=== PATIENT | female | born 1955 | race Caucasian/White ===

== ENCOUNTER 2018-11-18 19:30 | Inpatient (IN) | payer MEDICARE, MEDICAID ==
[2018-11-18 22:05] VITALS: BP 122/51
[2018-11-18] MEDS ORDERED: Magnesium Hydroxide (MOM) 30 mL UDC PO PRN (22:17)
[2018-11-18] MEDS ORDERED: Maalox 30 mL Cup PO PRN (22:17)
[2018-11-19 03:31] LABS: URINE SOURCE MIDSTREAM
[2018-11-19 03:35] LABS: URINE BILIRUBIN NEGATIVE (NEGATIVE); URINE BLOOD NEGATIVE (NEGATIVE); URINE GLUCOSE (UA) NEGATIVE (NEGATIVE); URINE KETONE NEGATIVE (NEGATIVE); URINE LEUKOCYTE ESTERASE NEGATIVE (NEGATIVE); URINE NITRATE NEGATIVE (NEGATIVE); URINE PH 5.5 (4.6 - 8.0); URINE PROTEIN NEGATIVE (NEGATIVE); URINE UROBILINOGEN 0.2 E.U./dL (0.2 - 1.0)
[2018-11-19 03:41] LABS: URINE CLARITY CLEAR (CLEAR); URINE COLOR YELLOW; URINE MICROSCOPIC INDICATED? NO
[2018-11-19] MEDS: Albuterol Nebulizer 2.5mg/3mL HHN PRN (07:07)
[2018-11-19 07:45] LABS: CHOLESTEROL 206 mg/dL (<200); HDL -HIGH DENSITY LIPOPROTEIN 62 mg/dL (23-92); TRIGLYCERIDES 163 mg/dL (<150)
--- NOTE | 2018-11-19 09:22 | History and Physical ---
History of Present Illness - HPI Chief Complaint: Agitation HPI: Per record, patient went to [facility] due to SOB, during examination patient became agitated reason why she was transferred to this hospital Vital Signs: Last Vital Signs Temp 97.2 F 11/19/18 06:47 Pulse 89 11/19/18 07:04 Resp 18 11/19/18 07:04 BP 100/62 11/19/18 06:47 Pulse Ox 95 11/19/18 07:04 Past Medical History Cardiovascular: Report: No Pertinent Hx Pulmonary: Report: COPD RETAIL REPRESENTATIVE: Report: No Pertinent Hx GI: Report: No Pertinent Hx Psych: Report: Psychosis, Schizophrenia Musculoskeletal: Report: No Pertinent Hx Rheumatologic: Report: No pertinent Hx Infectious Disease: Report: No Pertinent Hx Renal/: Report: No Pertinent Hx Endocrine: Report: No Pertinent Hx Dermatology: Report: No Pertinent Hx - Past Surgical History Past Surgical History: No pertinent Hx Social History Smoke: No Alcohol: Occassional Drugs: Marijuana Lives: Homeless Domestic Violence: Negative - Allergies Allergies/Adverse Reactions: Allergies Allergy/AdvReac Type Severity Reaction Status Date / Time No Known Allergies Allergy Verified 11/18/18 22:12 Review of Systems - Review of Systems Constitutional: Report: Weakness Eyes: Report: No Significant ENT: Report: No Significant Respiratory: Report: Cough, SOB with Excertion, Wheezing Cardiovascular: Report: No Significant Gastrointestinal: Report: No Significant Genitourinary: Report: No Significant Musculoskeletal: Report: No Significant Skin: Report: No Significant Neurological: Report: Weakness Physical Exam - Physical Exam HEENT: Report: Ears Nose Throat within normal limits Neck: Report: Within normal limits Cardiovascular Systems: Report: Regular, Rate and Rhythm Respiratory: Report: Wheezing, Rhonchi Abdomen: Report: Non-tender to palpation Back: Report: Inspection of back is within normal limits. Extremities: Report: Non-tender to palpation. Skin: Report: Color of skin is within normal limits, Warm, Dry Neuro/Psych: Report: Disoriented to name time or place, Depressed affect - Lab Results All Lab Results last 24 hours: Laboratory Results - last 24 hr 11/18/18 11/19/18 00:00 07:00 Triglycerides 163 H Cholesterol 206 H LDL Cholesterol Direct 112 HDL Cholesterol 62 Urine Source MIDSTREAM Urine Color YELLOW Urine Clarity CLEAR Urine pH 5.5 Ur Specific [place] 1.020 Urine Protein NEGATIVE Urine Glucose (UA) NEGATIVE Urine Ketones NEGATIVE Urine Blood NEGATIVE Urine Nitrate NEGATIVE Urine Bilirubin NEGATIVE Urine Urobilinogen 0.2 Ur Leukocyte Esterase NEGATIVE - Assessment Assessment: Patient was not able to provided a good medical history, information was gather from chart. She is awake, alert, confused, not oriented, in no acute distress. There is bilateral whezzing. Dx: Psychosis, COPD exacerbation, Schizophrenia. - Plan Plan: patient is follow by Psychiatry, she is on albuterol/ipratropium breathing treatment, Labs and CXR were requested. Will continue to monitor.
[2018-11-19 10:19] LABS: % BASOPHILS 0.7 % (0.0-2.0); % EOSINOPHILS 0.7 % (0.0-5.0); % LYMPHOCYTES 42.4 % (20.0-50.0); % MONOCYTES 6.5 % (2.0-10.0); % NEUTROPHILS 49.7 % (40.0-80.0); BASOPHILE ABSOLUTE 0.1 Th/cumm (0-0.2); EOSINOPHILE ABSOLUTE 0.1 Th/cmm (0.1-0.4); HEMATOCRIT 43.2 % (41.0-60); HEMOGLOBIN 14.1 gm/dL (12-16); LYMPHOCYTE ABSOLUTE 4.1 Th/cmm (1.5-3.0); MEAN CELL VOLUME 96.7 fl (81-100); MEAN CORPUSCULAR HEMOGLOBIN 31.7 pg (27.0-31.0); MEAN CORPUSCULAR HGB CONC 32.8 pg (28.0-36.0); MEAN PLATELET VOLUME 8.4 fl; MONOCYTE ABSOLUTE 0.6 Th/cmm (0.3-1.0); NEUTROPHILE ABSOLUTE 4.7 Th/cmm (1.8-8.0); PLATELET COUNT 230 Th/cmm (150-400); RED BLOOD COUNT 4.46 Mil/cmm (3.80-5.20); RED CELL DISTRIBUTION WIDTH 13.5 % (11.5-20.0); WHITE BLOOD COUNT 9.6 Th/cmm (4.8-10.8)
[2018-11-19] MEDS: Albuterol/Ipratropium Neb 3 ML AERS HHN SCH ×2 (10:27→14:38)
[2018-11-19 10:33] LABS: ALB/GLOB RATIO 1.4 (1.0-1.8); ALBUMIN 3.8 gm/dL (3.7-5.3); ALKALINE PHOSPHATASE 78 U/L (34-104); ANION GAP 13.6 (7.0-16.0); BILIRUBIN,TOTAL 0.3 mg/dL (0.3-1.0); BUN - UREA NITROGEN 15 mg/dL (7-25); CALCIUM SERUM 9.4 mg/dL (8.6-10.3); CARBON DIOXIDE 28.3 mEq/L (21.0-31.0); CHLORIDE 101 mEq/L (98-107); CREATININE - SERUM 0.5 mg/dL (0.6-1.2); GFR AFRICAN-AMERICAN > 60.0 ml/min (>90); GFR NON AFRICAN-AMERICAN > 60.0 ml/min; GLUCOSE 101 mg/dL (70-105); POTASSIUM SERUM 3.9 mEq/L (3.5-5.1); SGOT 36 U/L (13-39); SGPT/ALT 43 U/L (7-52); SODIUM SERUM 139 mEq/L (136-145); TOTAL PROTEIN,SERUM 6.5 gm/dL (6.0-8.3)
--- NOTE | 2018-11-19 10:57 | Diagnostic Imaging Report ---
Portable chest x-ray History: Shortness of breath, COPD Allowing for portable technique the heart size is normal. No focal pulmonary parenchymal processes. No hilar or mediastinal abnormalities. Impression: No acute abnormalities.
[2018-11-19] MEDS ORDERED: Probiotic Screen MC PRN (15:33)
[2018-11-20] MEDS: Albuterol/Ipratropium Neb 3 ML AERS HHN SCH ×4 (06:44→19:11)
--- NOTE | 2018-11-20 10:04 | General Progress Note ---
Subjective - Review of Systems Service Date: 11/20/18 Subjective: I am fine Objective - Results Result Diagrams: 11/19/18 07:00 11/19/18 07:00 Recent Labs: Laboratory Last Values WBC 9.6 Th/cmm (4.8-10.8) 11/19/18 07:00 RBC 4.46 Mil/cmm (3.80-5.20) 11/19/18 07:00 Hgb 14.1 gm/dL (12-16) 11/19/18 07:00 Hct 43.2 % (41.0-60) 11/19/18 07:00 MCV 96.7 fl (81-100) 11/19/18 07:00 MCH 31.7 pg (27.0-31.0) H 11/19/18 07:00 MCHC Differential 32.8 pg (28.0-36.0) 11/19/18 07:00 RDW 13.5 % (11.5-20.0) 11/19/18 07:00 Plt Count 230 Th/cmm (150-400) 11/19/18 07:00 MPV 8.4 fl 11/19/18 07:00 Neutrophils % 49.7 % (40.0-80.0) 11/19/18 07:00 Lymphocytes % 42.4 % (20.0-50.0) 11/19/18 07:00 Monocytes % 6.5 % (2.0-10.0) 11/19/18 07:00 Eosinophils % 0.7 % (0.0-5.0) 11/19/18 07:00 Basophils % 0.7 % (0.0-2.0) 11/19/18 07:00 Sodium 139 mEq/L (136-145) 11/19/18 07:00 Potassium 3.9 mEq/L (3.5-5.1) 11/19/18 07:00 Chloride 101 mEq/L (98-107) 11/19/18 07:00 Carbon Dioxide 28.3 mEq/L (21.0-31.0) 11/19/18 07:00 Anion Gap 13.6 (7.0-16.0) 11/19/18 07:00 BUN 15 mg/dL (7-25) 11/19/18 07:00 Creatinine 0.5 mg/dL (0.6-1.2) L 11/19/18 07:00 Est GFR ( Amer) > 60.0 ml/min (>90) 11/19/18 07:00 Est GFR (Non-Af Amer) > 60.0 ml/min 11/19/18 07:00 BUN/Creatinine Ratio 30.0 11/19/18 07:00 Glucose 101 mg/dL (70-105) 11/19/18 07:00 Calcium 9.4 mg/dL (8.6-10.3) 11/19/18 07:00 Total Bilirubin 0.3 mg/dL (0.3-1.0) 11/19/18 07:00 AST 36 U/L (13-39) 11/19/18 07:00 ALT 43 U/L (7-52) 11/19/18 07:00 Alkaline Phosphatase 78 U/L (34-104) 11/19/18 07:00 Total Protein 6.5 gm/dL (6.0-8.3) 11/19/18 07:00 Albumin 3.8 gm/dL (3.7-5.3) 11/19/18 07:00 Globulin 2.7 gm/dL 11/19/18 07:00 Albumin/Globulin Ratio 1.4 (1.0-1.8) 11/19/18 07:00 Triglycerides 163 mg/dL (<150) H 11/19/18 07:00 Cholesterol 206 mg/dL (<200) H 11/19/18 07:00 LDL Cholesterol Direct 112 mg/dL (75-193) 11/19/18 07:00 HDL Cholesterol 62 mg/dL (23-92) 11/19/18 07:00 TSH 2.58 uIU/ml (0.34-5.60) 11/19/18 07:00 Urine Source MIDSTREAM 11/18/18 00:00 Urine Color YELLOW 11/18/18 00:00 Urine Clarity CLEAR (CLEAR) 11/18/18 00:00 Urine pH 5.5 (4.6 - 8.0) 11/18/18 00:00 Ur Specific [place] 1.020 (1.005-1.030) 11/18/18 00:00 Urine Protein NEGATIVE mg/dL (NEGATIVE) 11/18/18 00:00 Urine Glucose (UA) NEGATIVE mg/dL (NEGATIVE) 11/18/18 00:00 Urine Ketones NEGATIVE mg/dL (NEGATIVE) 11/18/18 00:00 Urine Blood NEGATIVE (NEGATIVE) 11/18/18 00:00 Urine Nitrate NEGATIVE (NEGATIVE) 11/18/18 00:00 Urine Bilirubin NEGATIVE (NEGATIVE) 11/18/18 00:00 Urine Urobilinogen 0.2 E.U./dL (0.2 - 1.0) 11/18/18 00:00 Ur Leukocyte Esterase NEGATIVE (NEGATIVE) 11/18/18 00:00 - Physical Exam Vitals and I&O: Vital Signs Temp 98.4 F 11/20/18 06:12 Pulse 80 11/20/18 06:45 Resp 18 11/20/18 06:45 BP 121/73 11/20/18 06:12 Pulse Ox 95 11/20/18 06:45 Intake & Output 11/19/18 11/20/18 11/20/18 18:59 06:59 18:59 Intake Total 950 360 Balance 950 360 Intake: Oral 950 360 Other: # Voids 4 1 # Bowel Movements 1 1 Active Medications: Current Medications Acetaminophen (Tylenol) 650 mg PO Q4HR PRN PRN Reason: Mild Pain / Temp above 100 Stop: 01/17/19 22:16 Al Hydrox/Mg Hydrox/Simethicone (Maalox) 30 ml PO Q4HR PRN PRN Reason: GI DISTRESS Stop: 01/17/19 22:16 Albuterol Sulfate (Albuterol 2.5mg/3ml Neb Ud) 2.5 mg HHN Q4H PRN PRN Reason: wheezing Stop: 01/17/19 22:49 Last Admin: 11/19/18 07:07 Dose: 2.5 mg Albuterol/Ipratropium (Duoneb Neb) 3 ml HHN [id number] [facility] Stop: 01/18/19 10:59 Last Admin: 11/20/18 06:44 Dose: 3 ml Benztropine Mesylate (Cogentin) 0.5 mg PO BID [facility] Stop: 01/19/19 08:59 Last Admin: 11/20/18 09:03 Dose: 0.5 mg Lorazepam (Ativan) 0.5 mg PO Q4HR PRN; Protocol PRN Reason: Agitation Stop: 12/18/18 22:16 Last Admin: 11/20/18 09:46 Dose: 0.5 mg Magnesium Hydroxide (Milk Of Magnesia) 30 ml PO HS PRN PRN Reason: Constipation Miscellaneous (Probiotic Screen) 1 ea [facility] PRN PRN PRN Reason: PROTOCOL Stop: 01/18/19 15:32 Prednisone (Deltasone) 40 mg PO DAILY [facility]UKUND Stop: 01/18/19 08:59 Last Admin: 11/20/18 09:04 Dose: 40 mg Risperidone (Risperdal) 1 mg PO BID [facility]UND; Protocol Stop: 01/18/19 08:59 Last Admin: 11/20/18 09:03 Dose: 1 mg Zolpidem Tartrate (Ambien) 5 mg PO HS PRN PRN Reason: Insomnia Stop: 01/17/19 22:16 General: Alert, Other (confused, not oriented) HEENT: Atraumatic Neck: Supple Cardiovascular: Regular rate Lungs: Other (Bilateral whezzing) Abdomen: Bowel sounds, Soft Extremities: Other (No edema) Neurological: Other (unestable gait) Skin: Other (warm and dry) Psych/Mental Status: Other (confused, not oriented) Assessment/Plan - Assessment Assessment: She is awake, alert, confused, not oriented, in no acute distress. There is bilateral whezzing. CXR shows no acute illness, labs are wnl. Dx: Psychosis, COPD exacerbation, Schizophrenia. - Plan Plan: patient is follow by Psychiatry, she is on albuterol/ipratropium breathing treatment, Labs and CXR were requested. Will continue to monitor.
--- NOTE | 2018-11-20 13:32 | Psychiatric Evaluation ---
DATE OF SERVICE: I am covering for Dr. Harrell. HISTORY OF PRESENT ILLNESS: The patient is a 63-year-old female who was transferred from [facility]. The patient was taken there on 5150 hold for agitation. Since they did not have any available psych bed, therefore the patient was transferred here on 11/18/2018. Primary care physician is Dr. Rashard Cannon. Upon interview, the patient appeared to be somewhat poor a historian. When asked why she is here, the patient reported that she is here because of shortness of breath. The patient also reported that she has been rocking back and forth for about 2 years. The patient was not able to say why she has this problem. When asked if she has been on antipsychotic medications, the patient denied. The patient admitted that she had been to psychiatric unit at [facility] twice, but not able to give the date when she was there. The patient reported that she was there for shortness of breath as well. The patient was able to give her name, she stated that she is 62 years old and date of of 04/11/1956, but according to her record the date of is 1955 and she is 63 years old. The patient reported that she has 4 children. She was twice and . The patient reported that she has been staying at a board and care in [place] by the name of [facility]. The patient reported that she was told by the staff at the facility to lose weight. The patient stated that she lost about 50 pounds in about a year. The patient reported that sometimes she has problems sleeping because of noises. When asked if she has any episodes of hearing voices or seeing things, the patient denied. When asked if she is happy or sad, the patient stated that she is neither happy nor sad, but then stated that she is more sad than happy. When asked to rate her mood on the 0-10 scale with 0 being normal happy and 10 being very depressed and suicidal, the patient stated 5-6. However, the patient was not able to say why she is depressed. PAST PSYCHIATRIC HISTORY: As above. The patient reported that she had been in psychiatric hospital before, but not able to give much information. The patient stated that she believes that her father has a history of mental illness, bipolar, but not able to give much information. PAST MEDICAL HISTORY: The patient has COPD. PAST SURGICAL HISTORY: The patient reported that she had appendectomy, left knee surgery, tubal ligation and umbilical hernia repair. ALLERGIES: No known allergy. MEDICATIONS: Currently, the patient is on Tylenol, Maalox, albuterol, DuoNeb, azithromycin, Ativan 0.5 mg q.4 hours p.r.n., milk of magnesia, probiotic, prednisone, Risperdal 1 mg p.o. b.i.d., Ambien 5 mg p.o. at bedtime p.r.n. FAMILY HISTORY: The patient reported that she is the oldest of 2 children. She has 1 younger brother. SUBSTANCE ABUSE HISTORY: The patient reported that she used to drink. The patient reported that she smoked about half a pack a day. The patient reported that she tried marijuana, heroin, methamphetamine and cocaine. PATIENT'S EDUCATION: The patient reported that she finished 10th grade. PERSONAL HISTORY: The patient reported that she was , twice. She has four children. 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 The patient has not worked in 15 years. The patient reported that she was not able to work after she was diagnosed with schizophrenia around the year 1999. MENTAL STATUS EXAMINATION: The patient appeared older than stated age. The patient was cooperative, maintained good eye contact. Speech appeared to be normal. Mood appeared to be somewhat depressed with constricted affect. The patient rated her mood as 5-6 on a 0-10 scale with 0 being normal happy and 10 being very depressed and suicidal. Orientation: The patient was oriented to time, place and person. Short term memory, the patient was able to repeat the 4 items that they were given to her the first time. The patient was able to recall all 4 items after a few minutes. Concentration: The patient was able to perform serial 3 subtraction give an answer of 17, 14, 11 and 8. The patient was able to give logical interpretation to 1/3 proverbs. Insight fair to poor. Judgment fair to impaired. DIAGNOSTIC IMPRESSION: AXIS I: Schizophrenia, chronic paranoid type. AXIS II: Deferred. AXIS III: Chronic obstructive pulmonary disease. AXIS IV: Medical and mental illnesses. AXIS V: Current 25, past year unknown. PLAN: We will continue the patient on Risperdal 1 mg p.o. b.i.d. We will start the patient on Cogentin for possible EPS with frequent rocking of her body. We will request for psychology consult with Dr. Calderón. ESTIMATED LENGTH OF STAY: 7-10 days. DISCHARGE CRITERIA: Include improvement of her condition with no recurrent aggressive behavior and continue compliant with medication. JOB# [id number] [email or web address]
--- NOTE | 2018-11-20 23:05 | Progress Notes ---
DATE: SUBJECTIVE: The patient is sitting in the activity room drinking coffee. The patient was calm and pleasant. The patient indicated that she is feeling better. The patient reported that she has been eating and sleeping okay. The patient reported that she continued to rock herself as much as before. However, during the interview, the patient was more of a moving from side to side rather than rocking back and forth. The patient stated that she continued to do that as much as before. However, this communications writer can see that patient is not doing as much. OBJECTIVE: The patient is calm and pleasant. The patient is moving her body from side to side, not back and forth like she did yesterday. The staff reported that patient has been doing okay. The patient has been compliant with care and treatment and does not have much complained of anything. The patient also did not report any auditory or visual hallucination or delusion. ASSESSMENT: Schizophrenia, chronic paranoid type, in acute exacerbation. PLAN: We will continue the patient on current medications patient was suggested yesterday. JOB# [id number]
[2018-11-21] MEDS: Albuterol/Ipratropium Neb 3 ML AERS HHN SCH ×4 (06:44→19:42)
--- NOTE | 2018-11-21 15:54 | General Progress Note ---
Subjective - Review of Systems Service Date: 11/21/18 Subjective: I am fine Objective - Results Result Diagrams: 11/19/18 07:00 11/19/18 07:00 Recent Labs: Laboratory Last Values WBC 9.6 Th/cmm (4.8-10.8) 11/19/18 07:00 RBC 4.46 Mil/cmm (3.80-5.20) 11/19/18 07:00 Hgb 14.1 gm/dL (12-16) 11/19/18 07:00 Hct 43.2 % (41.0-60) 11/19/18 07:00 MCV 96.7 fl (81-100) 11/19/18 07:00 MCH 31.7 pg (27.0-31.0) H 11/19/18 07:00 MCHC Differential 32.8 pg (28.0-36.0) 11/19/18 07:00 RDW 13.5 % (11.5-20.0) 11/19/18 07:00 Plt Count 230 Th/cmm (150-400) 11/19/18 07:00 MPV 8.4 fl 11/19/18 07:00 Neutrophils % 49.7 % (40.0-80.0) 11/19/18 07:00 Lymphocytes % 42.4 % (20.0-50.0) 11/19/18 07:00 Monocytes % 6.5 % (2.0-10.0) 11/19/18 07:00 Eosinophils % 0.7 % (0.0-5.0) 11/19/18 07:00 Basophils % 0.7 % (0.0-2.0) 11/19/18 07:00 Sodium 139 mEq/L (136-145) 11/19/18 07:00 Potassium 3.9 mEq/L (3.5-5.1) 11/19/18 07:00 Chloride 101 mEq/L (98-107) 11/19/18 07:00 Carbon Dioxide 28.3 mEq/L (21.0-31.0) 11/19/18 07:00 Anion Gap 13.6 (7.0-16.0) 11/19/18 07:00 BUN 15 mg/dL (7-25) 11/19/18 07:00 Creatinine 0.5 mg/dL (0.6-1.2) L 11/19/18 07:00 Est GFR ( Amer) > 60.0 ml/min (>90) 11/19/18 07:00 Est GFR (Non-Af Amer) > 60.0 ml/min 11/19/18 07:00 BUN/Creatinine Ratio 30.0 11/19/18 07:00 Glucose 101 mg/dL (70-105) 11/19/18 07:00 Calcium 9.4 mg/dL (8.6-10.3) 11/19/18 07:00 Total Bilirubin 0.3 mg/dL (0.3-1.0) 11/19/18 07:00 AST 36 U/L (13-39) 11/19/18 07:00 ALT 43 U/L (7-52) 11/19/18 07:00 Alkaline Phosphatase 78 U/L (34-104) 11/19/18 07:00 Total Protein 6.5 gm/dL (6.0-8.3) 11/19/18 07:00 Albumin 3.8 gm/dL (3.7-5.3) 11/19/18 07:00 Globulin 2.7 gm/dL 11/19/18 07:00 Albumin/Globulin Ratio 1.4 (1.0-1.8) 11/19/18 07:00 Triglycerides 163 mg/dL (<150) H 11/19/18 07:00 Cholesterol 206 mg/dL (<200) H 11/19/18 07:00 LDL Cholesterol Direct 112 mg/dL (75-193) 11/19/18 07:00 HDL Cholesterol 62 mg/dL (23-92) 11/19/18 07:00 TSH 2.58 uIU/ml (0.34-5.60) 11/19/18 07:00 Urine Source MIDSTREAM 11/18/18 00:00 Urine Color YELLOW 11/18/18 00:00 Urine Clarity CLEAR (CLEAR) 11/18/18 00:00 Urine pH 5.5 (4.6 - 8.0) 11/18/18 00:00 Ur Specific [facility] [place] 1.020 (1.005-1.030) 11/18/18 00:00 Urine Protein NEGATIVE mg/dL (NEGATIVE) 11/18/18 00:00 Urine Glucose (UA) NEGATIVE mg/dL (NEGATIVE) 11/18/18 00:00 Urine Ketones NEGATIVE mg/dL (NEGATIVE) 11/18/18 00:00 Urine Blood NEGATIVE (NEGATIVE) 11/18/18 00:00 Urine Nitrate NEGATIVE (NEGATIVE) 11/18/18 00:00 Urine Bilirubin NEGATIVE (NEGATIVE) 11/18/18 00:00 Urine Urobilinogen 0.2 E.U./dL (0.2 - 1.0) 11/18/18 00:00 Ur Leukocyte Esterase NEGATIVE (NEGATIVE) 11/18/18 00:00 - Physical Exam Vitals and I&O: Vital Signs Temp 97.4 F 11/21/18 06:26 Pulse 90 11/21/18 15:04 Resp 18 11/21/18 15:04 BP 93/61 11/21/18 06:26 Pulse Ox 95 11/21/18 15:04 Intake & Output 11/20/18 11/21/18 11/21/18 18:59 06:59 18:59 Intake Total 1000 120 Balance 1000 120 Intake: Oral 1000 120 Other: # Voids 4 3 Active Medications: Current Medications Acetaminophen (Tylenol) 650 mg PO Q4HR PRN PRN Reason: Mild Pain / Temp above 100 Stop: 01/17/19 22:16 Al Hydrox/Mg Hydrox/Simethicone (Maalox) 30 ml PO Q4HR PRN PRN Reason: GI DISTRESS Stop: 01/17/19 22:16 Albuterol Sulfate (Albuterol 2.5mg/3ml Neb Ud) 2.5 mg HHN Q4H PRN PRN Reason: wheezing Stop: 01/17/19 22:49 Last Admin: 11/19/18 07:07 Dose: 2.5 mg Albuterol/Ipratropium (Duoneb Neb) 3 ml HHN [id number] [facility] Stop: 01/18/19 10:59 Last Admin: 11/21/18 15:04 Dose: 3 ml Benztropine Mesylate (Cogentin) 0.5 mg PO BID [facility] Stop: 01/19/19 08:59 Last Admin: 11/21/18 09:34 Dose: 0.5 mg Lorazepam (Ativan) 0.5 mg PO Q4HR PRN; Protocol PRN Reason: Agitation Stop: 12/18/18 22:16 Last Admin: 11/21/18 09:36 Dose: 0.5 mg Magnesium Hydroxide (Milk Of Magnesia) 30 ml PO HS PRN PRN Reason: Constipation Miscellaneous (Probiotic Screen) 1 ea MC PRN PRN PRN Reason: PROTOCOL Stop: 01/18/19 15:32 Prednisone (Deltasone) 40 mg PO DAILY [facility]UN[facility] Stop: 01/18/19 08:59 Last Admin: 11/21/18 09:35 Dose: 40 mg Risperidone (Risperdal) 1 mg PO BID [facility]UND; Protocol Stop: 01/18/19 08:59 Last Admin: 11/21/18 09:35 Dose: 1 mg Zolpidem Tartrate (Ambien) 5 mg PO HS PRN PRN Reason: Insomnia Stop: 01/17/19 22:16 General: Alert, Other (confused, not oriented) HEENT: Atraumatic Neck: Supple Cardiovascular: Regular rate Lungs: Other (Bilateral whezzing) Abdomen: Bowel sounds, Soft Extremities: Other (No edema) Neurological: Other (unestable gait) Skin: Other (warm and dry) Psych/Mental Status: Other (confused, not oriented) Assessment/Plan - Assessment Assessment: She is awake, alert, confused, not oriented, in no acute distress. There is bilateral whezzing. CXR shows no acute illness, labs are wnl. Dx: Psychosis, COPD exacerbation, Schizophrenia. - Plan Plan: patient is follow by Psychiatry, she is on albuterol/ipratropium breathing treatment, Labs and CXR were requested. Will continue to monitor.
--- NOTE | 2018-11-21 23:25 | Progress Notes ---
DATE: 11/21/2018 SUBJECTIVE: The patient was sitting on the bed as staff gave her medications. The patient took her medications without any problem. The patient reported that she has been doing okay. She has been eating and sleeping okay. The patient continued to report that she still has some rocking symptoms; however, the patient appeared to be very calm during the interview. The patient denied any auditory or visual hallucination or delusion. OBJECTIVE: The patient appeared to be calmer with less episodes of rocking. Staff reported that the patient continued to be cooperative with care and treatment and did not exhibit any behavioral problem. ASSESSMENT: The patient appeared to be doing better on current medication. PLAN: We will continue current medications and monitor any psychotic and behavioral symptoms. [facility]# [id number]
[2018-11-22] MEDS: Albuterol/Ipratropium Neb 3 ML AERS HHN SCH ×4 (07:07→18:57)
--- NOTE | 2018-11-22 15:15 | General Progress Note ---
Subjective - Review of Systems Service Date: 11/22/28 Subjective: I am fine Objective - Results Result Diagrams: 11/19/18 07:00 11/19/18 07:00 Recent Labs: Laboratory Last Values WBC 9.6 Th/cmm (4.8-10.8) 11/19/18 07:00 RBC 4.46 Mil/cmm (3.80-5.20) 11/19/18 07:00 Hgb 14.1 gm/dL (12-16) 11/19/18 07:00 Hct 43.2 % (41.0-60) 11/19/18 07:00 MCV 96.7 fl (81-100) 11/19/18 07:00 MCH 31.7 pg (27.0-31.0) H 11/19/18 07:00 MCHC Differential 32.8 pg (28.0-36.0) 11/19/18 07:00 RDW 13.5 % (11.5-20.0) 11/19/18 07:00 Plt Count 230 Th/cmm (150-400) 11/19/18 07:00 MPV 8.4 fl 11/19/18 07:00 Neutrophils % 49.7 % (40.0-80.0) 11/19/18 07:00 Lymphocytes % 42.4 % (20.0-50.0) 11/19/18 07:00 Monocytes % 6.5 % (2.0-10.0) 11/19/18 07:00 Eosinophils % 0.7 % (0.0-5.0) 11/19/18 07:00 Basophils % 0.7 % (0.0-2.0) 11/19/18 07:00 Sodium 139 mEq/L (136-145) 11/19/18 07:00 Potassium 3.9 mEq/L (3.5-5.1) 11/19/18 07:00 Chloride 101 mEq/L (98-107) 11/19/18 07:00 Carbon Dioxide 28.3 mEq/L (21.0-31.0) 11/19/18 07:00 Anion Gap 13.6 (7.0-16.0) 11/19/18 07:00 BUN 15 mg/dL (7-25) 11/19/18 07:00 Creatinine 0.5 mg/dL (0.6-1.2) L 11/19/18 07:00 Est GFR ( Amer) > 60.0 ml/min (>90) 11/19/18 07:00 Est GFR (Non-Af Amer) > 60.0 ml/min 11/19/18 07:00 BUN/Creatinine Ratio 30.0 11/19/18 07:00 Glucose 101 mg/dL (70-105) 11/19/18 07:00 Calcium 9.4 mg/dL (8.6-10.3) 11/19/18 07:00 Total Bilirubin 0.3 mg/dL (0.3-1.0) 11/19/18 07:00 AST 36 U/L (13-39) 11/19/18 07:00 ALT 43 U/L (7-52) 11/19/18 07:00 Alkaline Phosphatase 78 U/L (34-104) 11/19/18 07:00 Total Protein 6.5 gm/dL (6.0-8.3) 11/19/18 07:00 Albumin 3.8 gm/dL (3.7-5.3) 11/19/18 07:00 Globulin 2.7 gm/dL 11/19/18 07:00 Albumin/Globulin Ratio 1.4 (1.0-1.8) 11/19/18 07:00 Triglycerides 163 mg/dL (<150) H 11/19/18 07:00 Cholesterol 206 mg/dL (<200) H 11/19/18 07:00 LDL Cholesterol Direct 112 mg/dL (75-193) 11/19/18 07:00 HDL Cholesterol 62 mg/dL (23-92) 11/19/18 07:00 TSH 2.58 uIU/ml (0.34-5.60) 11/19/18 07:00 Urine Source MIDSTREAM 11/18/18 00:00 Urine Color YELLOW 11/18/18 00:00 Urine Clarity CLEAR (CLEAR) 11/18/18 00:00 Urine pH 5.5 (4.6 - 8.0) 11/18/18 00:00 Ur Specific [place] 1.020 (1.005-1.030) 11/18/18 00:00 Urine Protein NEGATIVE mg/dL (NEGATIVE) 11/18/18 00:00 Urine Glucose (UA) NEGATIVE mg/dL (NEGATIVE) 11/18/18 00:00 Urine Ketones NEGATIVE mg/dL (NEGATIVE) 11/18/18 00:00 Urine Blood NEGATIVE (NEGATIVE) 11/18/18 00:00 Urine Nitrate NEGATIVE (NEGATIVE) 11/18/18 00:00 Urine Bilirubin NEGATIVE (NEGATIVE) 11/18/18 00:00 Urine Urobilinogen 0.2 E.U./dL (0.2 - 1.0) 11/18/18 00:00 Ur Leukocyte Esterase NEGATIVE (NEGATIVE) 11/18/18 00:00 - Physical Exam Vitals and I&O: Vital Signs Temp 98.0 F 11/22/18 14:45 Pulse 94 11/22/18 15:00 Resp 18 11/22/18 15:00 BP 104/50 11/22/18 14:45 Pulse Ox 96 11/22/18 15:00 Intake & Output 11/21/18 11/22/18 11/22/18 18:59 06:59 18:59 Intake Total 120 Balance 120 Intake: Oral 120 Other: # Voids 3 Active Medications: Current Medications Acetaminophen (Tylenol) 650 mg PO Q4HR PRN PRN Reason: Mild Pain / Temp above 100 Stop: 01/17/19 22:16 Al Hydrox/Mg Hydrox/Simethicone (Maalox) 30 ml PO Q4HR PRN PRN Reason: GI DISTRESS Stop: 01/17/19 22:16 Albuterol Sulfate (Albuterol 2.5mg/3ml Neb Ud) 2.5 mg HHN Q4H PRN PRN Reason: wheezing Stop: 01/17/19 22:49 Last Admin: 11/19/18 07:07 Dose: 2.5 mg Albuterol/Ipratropium (Duoneb Neb) 3 ml HHN [id number] [facility] Stop: 01/18/19 10:59 Last Admin: 11/22/18 15:00 Dose: 3 ml Benztropine Mesylate (Cogentin) 0.5 mg PO BID [facility] Stop: 01/19/19 08:59 Last Admin: 11/22/18 09:45 Dose: 0.5 mg Lorazepam (Ativan) 0.5 mg PO Q4HR PRN; Protocol PRN Reason: Agitation Stop: 12/18/18 22:16 Last Admin: 11/21/18 17:33 Dose: 0.5 mg Magnesium Hydroxide (Milk Of Magnesia) 30 ml PO HS PRN PRN Reason: Constipation Miscellaneous (Probiotic Screen) 1 ea [facility] PRN PRN PRN Reason: PROTOCOL Stop: 01/18/19 15:32 Prednisone (Deltasone) 40 mg PO DAILY [facility] Stop: 01/18/19 08:59 Last Admin: 11/22/18 09:46 Dose: 40 mg Risperidone (Risperdal) 1 mg PO BID [facility]; Protocol Stop: 01/18/19 08:59 Last Admin: 11/22/18 09:46 Dose: 1 mg Zolpidem Tartrate (Ambien) 5 mg PO HS PRN PRN Reason: Insomnia Stop: 01/17/19 22:16 General: Alert, Other (confused, not oriented) HEENT: Atraumatic Neck: Supple Cardiovascular: Regular rate Lungs: Other (Bilateral whezzing) Abdomen: Bowel sounds, Soft Extremities: Other (No edema) Neurological: Other (unestable gait) Skin: Other (warm and dry) Psych/Mental Status: Other (confused, not oriented) Assessment/Plan - Assessment Assessment: She is awake, alert, confused, not oriented, in no acute distress. There is bilateral whezzing. CXR shows no acute illness, labs are wnl. Dx: Psychosis, COPD exacerbation, Schizophrenia. - Plan Plan: patient is follow by Psychiatry, she is on albuterol/ipratropium breathing treatment, Patient was DC to [facility].
--- NOTE | 2018-11-23 03:12 | Progress Notes ---
DATE: 11/22/2018 SUBJECTIVE: Staff was spoken to. The patient is interviewed. Mood is noted to be irritable. Affect is constricted. The patient's insight and judgment are noted to be still impaired. The patient is isolative and withdrawn, continues to be very paranoid. The patient is currently on 1 mg twice a day of the Risperdal and has been able to tolerate the medication. No side effects to the medications are noted at this time. ASSESSMENT: The patient is still paranoid. PLAN: To continue the patient with the supportive therapy and followup. JOB# [id number]
--- NOTE | 2018-11-23 04:10 | Consultation ---
DATE OF CONSULTATION: 11/20/2018 REFERRING PHYSICIAN: Maulik Haney MD TYPE OF CONSULTATION: Psychology. HISTORY OF PRESENT ILLNESS: The patient is a 63-year-old female. The patient was transferred from [facility]. The patient is being admitted on a 5150 hold for agitation. The following is by record review and by the patient's self report. Upon interview, the patient states that she is being hospitalized because of shortness of breath. She states she does not understand the admission on to the Geropsychiatric Unit. The patient states that she has had a radical weight loss in the last year and this may be affecting her medical condition. The patient admits feeling depressed, but denied any suicidal ideation, plan, or intention. She presents as pleasant but somewhat confused. PAST MEDICAL HISTORY: Please see history and physical by Dr. Cannon. PAST PSYCHIATRIC HISTORY: According to record review, the patient has had previous psychiatric hospitalizations at [facility]. The patient states that she has been on medication, but denied that she was taking any psychotropic medications. It is unknown whether the patient is under the care of a psychiatrist or psychologist at her facility. Patient states she has a history of schizophrenia. SUBSTANCE ABUSE HISTORY: The patient stated that she used to drink alcohol and that she was a smoker. The patient stated she does not drink or smoke, but was unable to state when she became abstinent. The patient stated she has tried multiple other illicit drugs in the past, i.e. marijuana, methamphetamine, cocaine, and heroin. PSYCHOSOCIAL HISTORY: The patient states she was twice and twice and that she has four children. 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 The patient states she has been unemployed for 15 years. The patient states that she dropped out of high school after the 10th grade. The patient denied any history of physical or sexual abuse. She denied any current legal problems. She stated she had been living at a board and care and wishes to return there. This will be discussed with the case finisher and the attending psychiatrist. MENTAL STATUS EXAMINATION: The patient appears to be her stated age. The patient's attitude is cooperative. Eye contact is fair. Speech is spontaneous. Mood is dysphoric and anxious. Affect is constricted. Thought process shows to be tangential and at times confused. The patient denied any auditory or visual hallucinations. The patient denies any suicidal ideation, plan, or intention. The patient's behavior has been redirectable on the unit. Impulse control is limited. Concentration is fair. The patient was able to perform serial 3 subtractions. Sensorium is alert and oriented x 3. The patient was able to repeat the 3 items given to her the first time and recall all 3 items after several minutes. Memory appears to be intact for immediate and short-term dimension and long-term dimension needs further evaluation. The patient was able to interpret 1/3 proverbs, the other 2 the patient she had not heard. Insight is poor. Judgment is compromised. DIAGNOSTIC IMPRESSION: AXIS I: History of schizophrenia, chronic, paranoid type. AXIS II: Deferred. AXIS III: Per Dr. Cannon. TREATMENT PLAN: The patient has been seen by Dr. Haney for psychiatric evaluation and for the management of the patient's psychotropic medications. We will provide supportive psychotherapy to include reality orientation, differentiation and integration. We will provide motivational enhancement for the patient to become compliant and stay compliant with all aspects of her care and treatment. We will provide de-escalation and limit setting. We will encourage the patient to demonstrate emotional and self-regulation and to verbalize her concerns versus acting out. We will provide coping strategies for phase of life issues as well as for chronic severe mental illness. We will follow up in 2 days to continue the present treatment as ordered by the attending psychiatrist. Thank you, Dr. Haney for this consult and the opportunity to participate in this patient's care. JOB# [id number] GLENYS
[2018-11-23] MEDS: Albuterol/Ipratropium Neb 3 ML AERS HHN SCH ×4 (07:14→21:29)
--- NOTE | 2018-11-23 09:23 | General Progress Note ---
Subjective - Review of Systems Service Date: 11/23/18 Subjective: I am fine Objective - Results Result Diagrams: 11/19/18 07:00 11/19/18 07:00 Recent Labs: Laboratory Last Values WBC 9.6 Th/cmm (4.8-10.8) 11/19/18 07:00 RBC 4.46 Mil/cmm (3.80-5.20) 11/19/18 07:00 Hgb 14.1 gm/dL (12-16) 11/19/18 07:00 Hct 43.2 % (41.0-60) 11/19/18 07:00 MCV 96.7 fl (81-100) 11/19/18 07:00 MCH 31.7 pg (27.0-31.0) H 11/19/18 07:00 MCHC Differential 32.8 pg (28.0-36.0) 11/19/18 07:00 RDW 13.5 % (11.5-20.0) 11/19/18 07:00 Plt Count 230 Th/cmm (150-400) 11/19/18 07:00 MPV 8.4 fl 11/19/18 07:00 Neutrophils % 49.7 % (40.0-80.0) 11/19/18 07:00 Lymphocytes % 42.4 % (20.0-50.0) 11/19/18 07:00 Monocytes % 6.5 % (2.0-10.0) 11/19/18 07:00 Eosinophils % 0.7 % (0.0-5.0) 11/19/18 07:00 Basophils % 0.7 % (0.0-2.0) 11/19/18 07:00 Sodium 139 mEq/L (136-145) 11/19/18 07:00 Potassium 3.9 mEq/L (3.5-5.1) 11/19/18 07:00 Chloride 101 mEq/L (98-107) 11/19/18 07:00 Carbon Dioxide 28.3 mEq/L (21.0-31.0) 11/19/18 07:00 Anion Gap 13.6 (7.0-16.0) 11/19/18 07:00 BUN 15 mg/dL (7-25) 11/19/18 07:00 Creatinine 0.5 mg/dL (0.6-1.2) L 11/19/18 07:00 Est GFR ( Amer) > 60.0 ml/min (>90) 11/19/18 07:00 Est GFR (Non-Af Amer) > 60.0 ml/min 11/19/18 07:00 BUN/Creatinine Ratio 30.0 11/19/18 07:00 Glucose 101 mg/dL (70-105) 11/19/18 07:00 Calcium 9.4 mg/dL (8.6-10.3) 11/19/18 07:00 Total Bilirubin 0.3 mg/dL (0.3-1.0) 11/19/18 07:00 AST 36 U/L (13-39) 11/19/18 07:00 ALT 43 U/L (7-52) 11/19/18 07:00 Alkaline Phosphatase 78 U/L (34-104) 11/19/18 07:00 Total Protein 6.5 gm/dL (6.0-8.3) 11/19/18 07:00 Albumin 3.8 gm/dL (3.7-5.3) 11/19/18 07:00 Globulin 2.7 gm/dL 11/19/18 07:00 Albumin/Globulin Ratio 1.4 (1.0-1.8) 11/19/18 07:00 Triglycerides 163 mg/dL (<150) H 11/19/18 07:00 Cholesterol 206 mg/dL (<200) H 11/19/18 07:00 LDL Cholesterol Direct 112 mg/dL (75-193) 11/19/18 07:00 HDL Cholesterol 62 mg/dL (23-92) 11/19/18 07:00 TSH 2.58 uIU/ml (0.34-5.60) 11/19/18 07:00 Urine Source MIDSTREAM 11/18/18 00:00 Urine Color YELLOW 11/18/18 00:00 Urine Clarity CLEAR (CLEAR) 11/18/18 00:00 Urine pH 5.5 (4.6 - 8.0) 11/18/18 00:00 Ur Specific [place] 1.020 (1.005-1.030) 11/18/18 00:00 Urine Protein NEGATIVE mg/dL (NEGATIVE) 11/18/18 00:00 Urine Glucose (UA) NEGATIVE mg/dL (NEGATIVE) 11/18/18 00:00 Urine Ketones NEGATIVE mg/dL (NEGATIVE) 11/18/18 00:00 Urine Blood NEGATIVE (NEGATIVE) 11/18/18 00:00 Urine Nitrate NEGATIVE (NEGATIVE) 11/18/18 00:00 Urine Bilirubin NEGATIVE (NEGATIVE) 11/18/18 00:00 Urine Urobilinogen 0.2 E.U./dL (0.2 - 1.0) 11/18/18 00:00 Ur Leukocyte Esterase NEGATIVE (NEGATIVE) 11/18/18 00:00 - Physical Exam Vitals and I&O: Vital Signs Temp 98.3 F 11/23/18 06:16 Pulse 86 11/23/18 07:14 Resp 18 11/23/18 07:14 BP 99/67 11/23/18 06:16 Pulse Ox 96 11/23/18 07:14 Intake & Output 11/22/18 11/23/18 11/23/18 18:59 06:59 18:59 Intake Total 1000 160 Balance 1000 160 Intake: Oral 1000 160 Other: # Voids 4 3 # Bowel Movements 1 0 Active Medications: Current Medications Acetaminophen (Tylenol) 650 mg PO Q4HR PRN PRN Reason: Mild Pain / Temp above 100 Stop: 01/17/19 22:16 Al Hydrox/Mg Hydrox/Simethicone (Maalox) 30 ml PO Q4HR PRN PRN Reason: GI DISTRESS Stop: 01/17/19 22:16 Albuterol Sulfate (Albuterol 2.5mg/3ml Neb Ud) 2.5 mg HHN Q4H PRN PRN Reason: wheezing Stop: 01/17/19 22:49 Last Admin: 11/19/18 07:07 Dose: 2.5 mg Albuterol/Ipratropium (Duoneb Neb) 3 ml HHN [id number] [facility] Stop: 01/18/19 10:59 Last Admin: 11/23/18 07:14 Dose: 3 ml Benztropine Mesylate (Cogentin) 0.5 mg PO BID [facility] Stop: 01/19/19 08:59 Last Admin: 11/23/18 08:18 Dose: 0.5 mg Lorazepam (Ativan) 0.5 mg PO Q4HR PRN; Protocol PRN Reason: Agitation Stop: 12/18/18 22:16 Last Admin: 11/23/18 08:18 Dose: 0.5 mg Magnesium Hydroxide (Milk Of Magnesia) 30 ml PO HS PRN PRN Reason: Constipation Miscellaneous (Probiotic Screen) 1 ea [facility] PRN PRN PRN Reason: PROTOCOL Stop: 01/18/19 15:32 Prednisone (Deltasone) 40 mg PO DAILY [facility] Stop: 01/18/19 08:59 Last Admin: 11/23/18 08:18 Dose: 40 mg Risperidone (Risperdal) 1 mg PO BID [facility]; Protocol Stop: 01/18/19 08:59 Last Admin: 11/23/18 08:17 Dose: 1 mg Zolpidem Tartrate (Ambien) 5 mg PO HS PRN PRN Reason: Insomnia Stop: 01/17/19 22:16 Last Admin: 11/22/18 23:19 Dose: 5 mg General: Alert, Other (confused, not oriented) HEENT: Atraumatic Neck: Supple Cardiovascular: Regular rate Lungs: Other (Bilateral whezzing) Abdomen: Bowel sounds, Soft Extremities: Other (No edema) Neurological: Other (unestable gait) Skin: Other (warm and dry) Psych/Mental Status: Other (confused, not oriented) Assessment/Plan - Assessment Assessment: She is awake, alert, confused, not oriented, in no acute distress. There is bilateral whezzing. CXR shows no acute illness, labs are wnl. Dx: Psychosis, COPD exacerbation, Schizophrenia. - Plan Plan: patient is follow by Psychiatry, she is on albuterol/ipratropium breathing treatment, Patient was DC to [facility].
--- NOTE | 2018-11-23 18:45 | Progress Notes ---
DATE: 11/22/2018 PSYCHOLOGY PROGRESS NOTE SUBJECTIVE: The patient is seen in the dining room in activity area. The patient is interviewed. Case is discussed with staff. The patient presented as less irritable and superficially cooperative. The patient continues to be suspicious and is asking about her medications for schizophrenia and bipolar disorder. The patient's thought process was markedly tangential, but at times redirectable and the patient could answer some questions relevantly. Staff reports the patient still has some impulse control problems. OBJECTIVE: Mood is less irritable. Affect is mood congruent. Thought process shows to be tangential with loose associations. There was some paranoid ideation present. The patient denied any suicidal ideation, plan or intention. The patient denied any auditory or visual hallucinations. The patient's behavior includes compliance with her medication. ASSESSMENT: The patient continues to be suspicious with paranoid ideation. We provided reality orientation, differentiation, and integration. We provided re-motivation and positive reinforcement for the patient to stay compliant with her care and treatment and her current medication regimen. We provided coping strategies for chronic severe mental illness and for phase of life issues. The patient is requesting to speak with the case manager specialist and/or forensic social worker regarding placement. The patient believes that she is eligible to be placed in a board and care facility. This will be discussed with the attending psychiatrist and case management. We will continue the present treatment in 2 days if the patient remains admitted on the unit. JOB# [id number] MTDJami
--- NOTE | 2018-11-24 06:04 | Progress Notes ---
DATE: 11/23/2018 PSYCHIATRIC PROGRESS NOTE SUBJECTIVE: Staff was spoken to. The patient is interviewed. Mood is noted to be irritable. Affect is constricted today. The patient is isolative and withdrawn. The patient has been currently on Risperdal and has been able to tolerate the medications. No side effects to the medications are noted. Sleep is noted to be poor. Appetite is noted to be improving at this time. ASSESSMENT: The patient is still paranoid. PLAN: To continue the patient with the supportive therapy and followup. [facility]# [id number]
[2018-11-24] MEDS: Albuterol/Ipratropium Neb 3 ML AERS HHN SCH ×4 (07:19→21:24)
--- NOTE | 2018-11-24 10:06 | General Progress Note ---
Subjective - Review of Systems Service Date: 11/24/18 Subjective: I am fine Objective - Results Result Diagrams: 11/19/18 07:00 11/19/18 07:00 Recent Labs: Laboratory Last Values WBC 9.6 Th/cmm (4.8-10.8) 11/19/18 07:00 RBC 4.46 Mil/cmm (3.80-5.20) 11/19/18 07:00 Hgb 14.1 gm/dL (12-16) 11/19/18 07:00 Hct 43.2 % (41.0-60) 11/19/18 07:00 MCV 96.7 fl (81-100) 11/19/18 07:00 MCH 31.7 pg (27.0-31.0) H 11/19/18 07:00 MCHC Differential 32.8 pg (28.0-36.0) 11/19/18 07:00 RDW 13.5 % (11.5-20.0) 11/19/18 07:00 Plt Count 230 Th/cmm (150-400) 11/19/18 07:00 MPV 8.4 fl 11/19/18 07:00 Neutrophils % 49.7 % (40.0-80.0) 11/19/18 07:00 Lymphocytes % 42.4 % (20.0-50.0) 11/19/18 07:00 Monocytes % 6.5 % (2.0-10.0) 11/19/18 07:00 Eosinophils % 0.7 % (0.0-5.0) 11/19/18 07:00 Basophils % 0.7 % (0.0-2.0) 11/19/18 07:00 Sodium 139 mEq/L (136-145) 11/19/18 07:00 Potassium 3.9 mEq/L (3.5-5.1) 11/19/18 07:00 Chloride 101 mEq/L (98-107) 11/19/18 07:00 Carbon Dioxide 28.3 mEq/L (21.0-31.0) 11/19/18 07:00 Anion Gap 13.6 (7.0-16.0) 11/19/18 07:00 BUN 15 mg/dL (7-25) 11/19/18 07:00 Creatinine 0.5 mg/dL (0.6-1.2) L 11/19/18 07:00 Est GFR ( Amer) > 60.0 ml/min (>90) 11/19/18 07:00 Est GFR (Non-Af Amer) > 60.0 ml/min 11/19/18 07:00 BUN/Creatinine Ratio 30.0 11/19/18 07:00 Glucose 101 mg/dL (70-105) 11/19/18 07:00 Calcium 9.4 mg/dL (8.6-10.3) 11/19/18 07:00 Total Bilirubin 0.3 mg/dL (0.3-1.0) 11/19/18 07:00 AST 36 U/L (13-39) 11/19/18 07:00 ALT 43 U/L (7-52) 11/19/18 07:00 Alkaline Phosphatase 78 U/L (34-104) 11/19/18 07:00 Total Protein 6.5 gm/dL (6.0-8.3) 11/19/18 07:00 Albumin 3.8 gm/dL (3.7-5.3) 11/19/18 07:00 Globulin 2.7 gm/dL 11/19/18 07:00 Albumin/Globulin Ratio 1.4 (1.0-1.8) 11/19/18 07:00 Triglycerides 163 mg/dL (<150) H 11/19/18 07:00 Cholesterol 206 mg/dL (<200) H 11/19/18 07:00 LDL Cholesterol Direct 112 mg/dL (75-193) 11/19/18 07:00 HDL Cholesterol 62 mg/dL (23-92) 11/19/18 07:00 TSH 2.58 uIU/ml (0.34-5.60) 11/19/18 07:00 Urine Source MIDSTREAM 11/18/18 00:00 Urine Color YELLOW 11/18/18 00:00 Urine Clarity CLEAR (CLEAR) 11/18/18 00:00 Urine pH 5.5 (4.6 - 8.0) 11/18/18 00:00 Ur Specific [place] 1.020 (1.005-1.030) 11/18/18 00:00 Urine Protein NEGATIVE mg/dL (NEGATIVE) 11/18/18 00:00 Urine Glucose (UA) NEGATIVE mg/dL (NEGATIVE) 11/18/18 00:00 Urine Ketones NEGATIVE mg/dL (NEGATIVE) 11/18/18 00:00 Urine Blood NEGATIVE (NEGATIVE) 11/18/18 00:00 Urine Nitrate NEGATIVE (NEGATIVE) 11/18/18 00:00 Urine Bilirubin NEGATIVE (NEGATIVE) 11/18/18 00:00 Urine Urobilinogen 0.2 E.U./dL (0.2 - 1.0) 11/18/18 00:00 Ur Leukocyte Esterase NEGATIVE (NEGATIVE) 11/18/18 00:00 - Physical Exam Vitals and I&O: Vital Signs Temp 98.6 F 11/24/18 05:47 Pulse 90 11/24/18 07:19 Resp 18 11/24/18 07:19 BP 120/55 11/24/18 05:47 Pulse Ox 97 11/24/18 07:19 Intake & Output 11/23/18 11/24/18 11/24/18 18:59 06:59 18:59 Intake Total 120 Balance 120 Intake: Oral 120 Other: # Voids 2 # Bowel Movements 0 Active Medications: Current Medications Acetaminophen (Tylenol) 650 mg PO Q4HR PRN PRN Reason: Mild Pain / Temp above 100 Stop: 01/17/19 22:16 Al Hydrox/Mg Hydrox/Simethicone (Maalox) 30 ml PO Q4HR PRN PRN Reason: GI DISTRESS Stop: 01/17/19 22:16 Albuterol Sulfate (Albuterol 2.5mg/3ml Neb Ud) 2.5 mg HHN Q4H PRN PRN Reason: wheezing Stop: 01/17/19 22:49 Last Admin: 11/19/18 07:07 Dose: 2.5 mg Albuterol/Ipratropium (Duoneb Neb) 3 ml HHN [id number] [facility] Stop: 01/18/19 10:59 Last Admin: 11/24/18 07:19 Dose: 3 ml Benztropine Mesylate (Cogentin) 0.5 mg PO BID [facility] Stop: 01/19/19 08:59 Last Admin: 11/24/18 09:08 Dose: 0.5 mg Lorazepam (Ativan) 0.5 mg PO Q4HR PRN; Protocol PRN Reason: Agitation Stop: 12/18/18 22:16 Last Admin: 11/24/18 09:08 Dose: 0.5 mg Magnesium Hydroxide (Milk Of Magnesia) 30 ml PO HS PRN PRN Reason: Constipation Miscellaneous (Probiotic Screen) 1 ea MC PRN PRN PRN Reason: PROTOCOL Stop: 01/18/19 15:32 Prednisone (Deltasone) 40 mg PO DAILY MUKUND Stop: 01/18/19 08:59 Last Admin: 11/24/18 09:08 Dose: 40 mg Risperidone (Risperdal) 1 mg PO BID MUKUND; Protocol Stop: 01/18/19 08:59 Last Admin: 11/24/18 09:08 Dose: 1 mg Zolpidem Tartrate (Ambien) 5 mg PO HS PRN PRN Reason: Insomnia Stop: 01/17/19 22:16 Last Admin: 11/22/18 23:19 Dose: 5 mg General: Alert, Other (confused, not oriented) HEENT: Atraumatic Neck: Supple Cardiovascular: Regular rate Lungs: Other (Bilateral whezzing) Abdomen: Bowel sounds, Soft Extremities: Other (No edema) Neurological: Other (unestable gait) Skin: Other (warm and dry) Psych/Mental Status: Other (confused, not oriented) Assessment/Plan - Assessment Assessment: She is awake, alert, confused, not oriented, in no acute distress. There is bilateral whezzing. CXR shows no acute illness, labs are wnl. Dx: Psychosis, COPD exacerbation, Schizophrenia. - Plan Plan: patient is follow by Psychiatry, she is on albuterol/ipratropium breathing treatment, Patient was DC to [facility]. Nutritional Asmnt/Malnutr-PDOC - Dietary Evaluation Malnutrition Findings (Please click <Entered> for more info): Nutritional Asmnt/Malnutrition Start: 11/23/18 14: 26 Text: Status: Complete Freq: Protocol: Document 11/23/18 14:26 [email or web address] (Rec: 11/23/18 14:40 SYL [email or web address]) Nutritional Asmnt/Malnutrition Patient General Information Nutritional Screening Low Risk Diagnosis psychosis & schizophrenia Pertinent Medical Hx/Surgical Hx COPD, psychosis, schizophrenia Subjective Information pt seen smoking in patio at time of visit. PO intake 100% per EMR. Current Diet Order/ Nutrition Support regular Pertinent Medications reviewed Pertinent Labs 11/19 Cr 0.5 Nutritional Hx/Data Height 1.57 m Height (Calculated Centimeters) 157.5 Current Weight (lbs) 49.442 kg Weight (Calculated Kilograms) 49.4 Weight (Calculated Grams) 68687.6 [place] Body Weight 100 Body Mass Index (BMI) 19.9 Weight Status Approriate GI Symptoms GI Symptoms None Last BM 11/22 Difficult in: None Skin Integrity/Comment: intact Current %PO Good (75-100%) Estimated Nutritional Goals BEE in Kcals: Using Current wt Calories/Kcals/Kg 25-30 Kcals Calculated 9555-9570 Protein: Using Current wt Protein g/k Protein Calculated 50 Fluid: ml 1250-1500ml (1ml/kcal) Nutritional Problem No current Nutrition Prob Problem N/A Malnutrition Alert Is there a minimum of two criteria No selected? Query Text:Check all the applicable criteria. A minimum of two criteria are recommended for diagnosis of either severe or non-severe malnutrition. Malnutrition Related to Morbid Obesity Malnutrition related to morbid obesity No Intervention/Recommendation Comments 1. Continue with cregular diet as ordered. 2. Monitor PO intake, wt, labs and skin integrity 3. F/U as low risk in 7 days Expected Outcomes/Goals Expected Outcomes/Goals 1. PO intake to meet at least 75% of nutritional needs. 2. Wt stability, skin to remain intact, labs to approach WNL.
--- NOTE | 2018-11-24 14:41 | Progress Notes ---
DATE: 11/24/2018 SUBJECTIVE: Staff was spoken to. The patient is interviewed. Mood is noted to be irritable. Affect is constricted. The patient's coping skills are noted to be irritable. Continues to be isolative and withdrawn. Paranoid delusions are noted. The patient is currently on Risperdal and has been able to tolerate the medications. No side effects to the medications are noted at this time. ASSESSMENT: The patient is still psychotic. PLAN: To continue the patient with the current medications and follow up. JOB# [id number]
[2018-11-24] MEDS: Albuterol Nebulizer 2.5mg/3mL HHN PRN (15:39)
[2018-11-25] MEDS: Albuterol/Ipratropium Neb 3 ML AERS HHN SCH ×4 (07:11→19:46)
--- NOTE | 2018-11-25 11:22 | Progress Notes ---
DATE: 11/25/2018 SUBJECTIVE: Staff was spoken to. The patient is interviewed. Mood is noted to be irritable. Affect is constricted. Continues to be paranoid. Coping skills are noted to be extremely poor. The patient, however, is noted to be isolative and withdrawn. Personal hygiene seems to be very poor. Aggressive behavior seems to be coming under control. The patient has been able to tolerate the Risperdal. ASSESSMENT: The patient is still psychotic. PLAN: To continue the patient with the supportive therapy and follow-up. JOB# [id number]
--- NOTE | 2018-11-25 17:56 | General Progress Note ---
Subjective - Review of Systems Service Date: 11/25/18 Subjective: I am fine Objective - Results Result Diagrams: 11/19/18 07:00 11/19/18 07:00 Recent Labs: Laboratory Last Values WBC 9.6 Th/cmm (4.8-10.8) 11/19/18 07:00 RBC 4.46 Mil/cmm (3.80-5.20) 11/19/18 07:00 Hgb 14.1 gm/dL (12-16) 11/19/18 07:00 Hct 43.2 % (41.0-60) 11/19/18 07:00 MCV 96.7 fl (81-100) 11/19/18 07:00 MCH 31.7 pg (27.0-31.0) H 11/19/18 07:00 MCHC Differential 32.8 pg (28.0-36.0) 11/19/18 07:00 RDW 13.5 % (11.5-20.0) 11/19/18 07:00 Plt Count 230 Th/cmm (150-400) 11/19/18 07:00 MPV 8.4 fl 11/19/18 07:00 Neutrophils % 49.7 % (40.0-80.0) 11/19/18 07:00 Lymphocytes % 42.4 % (20.0-50.0) 11/19/18 07:00 Monocytes % 6.5 % (2.0-10.0) 11/19/18 07:00 Eosinophils % 0.7 % (0.0-5.0) 11/19/18 07:00 Basophils % 0.7 % (0.0-2.0) 11/19/18 07:00 Sodium 139 mEq/L (136-145) 11/19/18 07:00 Potassium 3.9 mEq/L (3.5-5.1) 11/19/18 07:00 Chloride 101 mEq/L (98-107) 11/19/18 07:00 Carbon Dioxide 28.3 mEq/L (21.0-31.0) 11/19/18 07:00 Anion Gap 13.6 (7.0-16.0) 11/19/18 07:00 BUN 15 mg/dL (7-25) 11/19/18 07:00 Creatinine 0.5 mg/dL (0.6-1.2) L 11/19/18 07:00 Est GFR ( Amer) > 60.0 ml/min (>90) 11/19/18 07:00 Est GFR (Non-Af Amer) > 60.0 ml/min 11/19/18 07:00 BUN/Creatinine Ratio 30.0 11/19/18 07:00 Glucose 101 mg/dL (70-105) 11/19/18 07:00 Calcium 9.4 mg/dL (8.6-10.3) 11/19/18 07:00 Total Bilirubin 0.3 mg/dL (0.3-1.0) 11/19/18 07:00 AST 36 U/L (13-39) 11/19/18 07:00 ALT 43 U/L (7-52) 11/19/18 07:00 Alkaline Phosphatase 78 U/L (34-104) 11/19/18 07:00 Total Protein 6.5 gm/dL (6.0-8.3) 11/19/18 07:00 Albumin 3.8 gm/dL (3.7-5.3) 11/19/18 07:00 Globulin 2.7 gm/dL 11/19/18 07:00 Albumin/Globulin Ratio 1.4 (1.0-1.8) 11/19/18 07:00 Triglycerides 163 mg/dL (<150) H 11/19/18 07:00 Cholesterol 206 mg/dL (<200) H 11/19/18 07:00 LDL Cholesterol Direct 112 mg/dL (75-193) 11/19/18 07:00 HDL Cholesterol 62 mg/dL (23-92) 11/19/18 07:00 TSH 2.58 uIU/ml (0.34-5.60) 11/19/18 07:00 Urine Source MIDSTREAM 11/18/18 00:00 Urine Color YELLOW 11/18/18 00:00 Urine Clarity CLEAR (CLEAR) 11/18/18 00:00 Urine pH 5.5 (4.6 - 8.0) 11/18/18 00:00 Ur Specific [place] 1.020 (1.005-1.030) 11/18/18 00:00 Urine Protein NEGATIVE mg/dL (NEGATIVE) 11/18/18 00:00 Urine Glucose (UA) NEGATIVE mg/dL (NEGATIVE) 11/18/18 00:00 Urine Ketones NEGATIVE mg/dL (NEGATIVE) 11/18/18 00:00 Urine Blood NEGATIVE (NEGATIVE) 11/18/18 00:00 Urine Nitrate NEGATIVE (NEGATIVE) 11/18/18 00:00 Urine Bilirubin NEGATIVE (NEGATIVE) 11/18/18 00:00 Urine Urobilinogen 0.2 E.U./dL (0.2 - 1.0) 11/18/18 00:00 Ur Leukocyte Esterase NEGATIVE (NEGATIVE) 11/18/18 00:00 - Physical Exam Vitals and I&O: Vital Signs Temp 98.2 F 11/25/18 14:00 Pulse 92 11/25/18 15:31 Resp 18 11/25/18 15:31 BP 104/68 11/25/18 14:00 Pulse Ox 97 11/25/18 15:31 Intake & Output 11/24/18 11/25/18 11/25/18 18:59 06:59 18:59 Intake Total 500 Balance 500 Intake: Oral 500 Other: # Voids 1 Active Medications: Current Medications Acetaminophen (Tylenol) 650 mg PO Q4HR PRN PRN Reason: Mild Pain / Temp above 100 Stop: 01/17/19 22:16 Last Admin: 11/25/18 11:29 Dose: 650 mg Al Hydrox/Mg Hydrox/Simethicone (Maalox) 30 ml PO Q4HR PRN PRN Reason: GI DISTRESS Stop: 01/17/19 22:16 Albuterol Sulfate (Albuterol 2.5mg/3ml Neb Ud) 2.5 mg HHN Q4H PRN PRN Reason: wheezing Stop: 01/17/19 22:49 Last Admin: 11/19/18 07:07 Dose: 2.5 mg Albuterol/Ipratropium (Duoneb Neb) 3 ml HHN [id number] MUKUND Stop: 01/18/19 10:59 Last Admin: 11/25/18 15:31 Dose: 3 ml Benztropine Mesylate (Cogentin) 0.5 mg PO BID MUKUND Stop: 01/19/19 08:59 Last Admin: 11/25/18 16:51 Dose: 0.5 mg Lorazepam (Ativan) 0.5 mg PO Q4HR PRN; Protocol PRN Reason: Agitation Stop: 12/18/18 22:16 Last Admin: 11/25/18 16:55 Dose: 0.5 mg Magnesium Hydroxide (Milk Of Magnesia) 30 ml PO HS PRN PRN Reason: Constipation Miscellaneous (Probiotic Screen) 1 ea MC PRN PRN PRN Reason: PROTOCOL Stop: 01/18/19 15:32 Prednisone (Deltasone) 40 mg PO DAILY MUKUND Stop: 01/18/19 08:59 Last Admin: 11/25/18 09:09 Dose: 40 mg Risperidone (Risperdal) 1 mg PO BID MUKUND; Protocol Stop: 01/18/19 08:59 Last Admin: 11/25/18 16:51 Dose: 1 mg Zolpidem Tartrate (Ambien) 5 mg PO HS PRN PRN Reason: Insomnia Stop: 01/17/19 22:16 Last Admin: 11/22/18 23:19 Dose: 5 mg General: Alert, Other (confused, not oriented) HEENT: Atraumatic Neck: Supple Cardiovascular: Regular rate Lungs: Other (Bilateral whezzing) Abdomen: Bowel sounds, Soft Extremities: Other (No edema) Neurological: Other (unestable gait) Skin: Other (warm and dry) Psych/Mental Status: Other (confused, not oriented) Assessment/Plan - Assessment Assessment: She is awake, alert, confused, not oriented, in no acute distress. There is bilateral whezzing. CXR shows no acute illness, labs are wnl. Dx: Psychosis, COPD exacerbation, Schizophrenia. - Plan Plan: patient is follow by Psychiatry, she is on albuterol/ipratropium breathing treatment, Patient was DC to [facility]. Nutritional Asmnt/Malnutr-PDOC - Dietary Evaluation Malnutrition Findings (Please click <Entered> for more info): Nutritional Asmnt/Malnutrition Start: 11/23/18 14: 26 Text: Status: Complete Freq: Protocol: Document 11/23/18 14:26 LCHENG (Rec: 11/23/18 14:40 [email or web address]) Nutritional Asmnt/Malnutrition Patient General Information Nutritional Screening Low Risk Diagnosis psychosis & schizophrenia Pertinent Medical Hx/Surgical Hx COPD, psychosis, schizophrenia Subjective Information pt seen smoking in patio at time of visit. PO intake 100% per EMR. Current Diet Order/ Nutrition Support regular Pertinent Medications reviewed Pertinent Labs 11/19 Cr 0.5 Nutritional Hx/Data Height 1.57 m Height (Calculated Centimeters) 157.5 Current Weight (lbs) 49.442 kg Weight (Calculated Kilograms) 49.4 Weight (Calculated Grams) 29653.6 [place] Body Weight 100 Body Mass Index (BMI) 19.9 Weight Status Approriate GI Symptoms GI Symptoms None Last BM 11/22 Difficult in: None Skin Integrity/Comment: intact Current %PO Good (75-100%) Estimated Nutritional Goals BEE in Kcals: Using Current wt Calories/Kcals/Kg 25-30 Kcals Calculated 7496-0913 Protein: Using Current wt Protein g/k Protein Calculated 50 Fluid: ml 1250-1500ml (1ml/kcal) Nutritional Problem No current Nutrition Prob Problem N/A Malnutrition Alert Is there a minimum of two criteria No selected? Query Text:Check all the applicable criteria. A minimum of two criteria are recommended for diagnosis of either severe or non-severe malnutrition. Malnutrition Related to Morbid Obesity Malnutrition related to morbid obesity No Intervention/Recommendation Comments 1. Continue with cregular diet as ordered. 2. Monitor PO intake, wt, labs and skin integrity 3. F/U as low risk in 7 days Expected Outcomes/Goals Expected Outcomes/Goals 1. PO intake to meet at least 75% of nutritional needs. 2. Wt stability, skin to remain intact, labs to approach WNL.
[2018-11-26] MEDS: Albuterol/Ipratropium Neb 3 ML AERS HHN SCH ×4 (07:22→19:32)
--- NOTE | 2018-11-26 08:38 | General Progress Note ---
Subjective - Review of Systems Service Date: 11/26/18 Subjective: I am fine Objective - Results Result Diagrams: 11/19/18 07:00 11/19/18 07:00 Recent Labs: Laboratory Last Values WBC 9.6 Th/cmm (4.8-10.8) 11/19/18 07:00 RBC 4.46 Mil/cmm (3.80-5.20) 11/19/18 07:00 Hgb 14.1 gm/dL (12-16) 11/19/18 07:00 Hct 43.2 % (41.0-60) 11/19/18 07:00 MCV 96.7 fl (81-100) 11/19/18 07:00 MCH 31.7 pg (27.0-31.0) H 11/19/18 07:00 MCHC Differential 32.8 pg (28.0-36.0) 11/19/18 07:00 RDW 13.5 % (11.5-20.0) 11/19/18 07:00 Plt Count 230 Th/cmm (150-400) 11/19/18 07:00 MPV 8.4 fl 11/19/18 07:00 Neutrophils % 49.7 % (40.0-80.0) 11/19/18 07:00 Lymphocytes % 42.4 % (20.0-50.0) 11/19/18 07:00 Monocytes % 6.5 % (2.0-10.0) 11/19/18 07:00 Eosinophils % 0.7 % (0.0-5.0) 11/19/18 07:00 Basophils % 0.7 % (0.0-2.0) 11/19/18 07:00 Sodium 139 mEq/L (136-145) 11/19/18 07:00 Potassium 3.9 mEq/L (3.5-5.1) 11/19/18 07:00 Chloride 101 mEq/L (98-107) 11/19/18 07:00 Carbon Dioxide 28.3 mEq/L (21.0-31.0) 11/19/18 07:00 Anion Gap 13.6 (7.0-16.0) 11/19/18 07:00 BUN 15 mg/dL (7-25) 11/19/18 07:00 Creatinine 0.5 mg/dL (0.6-1.2) L 11/19/18 07:00 Est GFR ( Amer) > 60.0 ml/min (>90) 11/19/18 07:00 Est GFR (Non-Af Amer) > 60.0 ml/min 11/19/18 07:00 BUN/Creatinine Ratio 30.0 11/19/18 07:00 Glucose 101 mg/dL (70-105) 11/19/18 07:00 Calcium 9.4 mg/dL (8.6-10.3) 11/19/18 07:00 Total Bilirubin 0.3 mg/dL (0.3-1.0) 11/19/18 07:00 AST 36 U/L (13-39) 11/19/18 07:00 ALT 43 U/L (7-52) 11/19/18 07:00 Alkaline Phosphatase 78 U/L (34-104) 11/19/18 07:00 Total Protein 6.5 gm/dL (6.0-8.3) 11/19/18 07:00 Albumin 3.8 gm/dL (3.7-5.3) 11/19/18 07:00 Globulin 2.7 gm/dL 11/19/18 07:00 Albumin/Globulin Ratio 1.4 (1.0-1.8) 11/19/18 07:00 Triglycerides 163 mg/dL (<150) H 11/19/18 07:00 Cholesterol 206 mg/dL (<200) H 11/19/18 07:00 LDL Cholesterol Direct 112 mg/dL (75-193) 11/19/18 07:00 HDL Cholesterol 62 mg/dL (23-92) 11/19/18 07:00 TSH 2.58 uIU/ml (0.34-5.60) 11/19/18 07:00 Urine Source MIDSTREAM 11/18/18 00:00 Urine Color YELLOW 11/18/18 00:00 Urine Clarity CLEAR (CLEAR) 11/18/18 00:00 Urine pH 5.5 (4.6 - 8.0) 11/18/18 00:00 Ur Specific [place] 1.020 (1.005-1.030) 11/18/18 00:00 Urine Protein NEGATIVE mg/dL (NEGATIVE) 11/18/18 00:00 Urine Glucose (UA) NEGATIVE mg/dL (NEGATIVE) 11/18/18 00:00 Urine Ketones NEGATIVE mg/dL (NEGATIVE) 11/18/18 00:00 Urine Blood NEGATIVE (NEGATIVE) 11/18/18 00:00 Urine Nitrate NEGATIVE (NEGATIVE) 11/18/18 00:00 Urine Bilirubin NEGATIVE (NEGATIVE) 11/18/18 00:00 Urine Urobilinogen 0.2 E.U./dL (0.2 - 1.0) 11/18/18 00:00 Ur Leukocyte Esterase NEGATIVE (NEGATIVE) 11/18/18 00:00 - Physical Exam Vitals and I&O: Vital Signs Temp 98.1 F 11/26/18 06:26 Pulse 89 11/26/18 07:22 Resp 18 11/26/18 07:22 BP 101/65 11/26/18 06:26 Pulse Ox 97 11/26/18 07:22 Intake & Output 11/25/18 11/26/18 11/26/18 18:59 06:59 18:59 Intake Total 1000 450 Balance 1000 450 Intake: Oral 1000 450 Other: # Voids 4 1 # Bowel Movements 1 Active Medications: Current Medications Acetaminophen (Tylenol) 650 mg PO Q4HR PRN PRN Reason: Mild Pain / Temp above 100 Stop: 01/17/19 22:16 Last Admin: 11/25/18 11:29 Dose: 650 mg Al Hydrox/Mg Hydrox/Simethicone (Maalox) 30 ml PO Q4HR PRN PRN Reason: GI DISTRESS Stop: 01/17/19 22:16 Albuterol Sulfate (Albuterol 2.5mg/3ml Neb Ud) 2.5 mg HHN Q4H PRN PRN Reason: wheezing Stop: 01/17/19 22:49 Last Admin: 11/19/18 07:07 Dose: 2.5 mg Albuterol/Ipratropium (Duoneb Neb) 3 ml HHN [id number] MUKUND Stop: 01/18/19 10:59 Last Admin: 11/26/18 07:22 Dose: 3 ml Benztropine Mesylate (Cogentin) 0.5 mg PO BID MUKUND Stop: 01/19/19 08:59 Last Admin: 11/25/18 16:51 Dose: 0.5 mg Lorazepam (Ativan) 0.5 mg PO Q4HR PRN; Protocol PRN Reason: Agitation Stop: 12/18/18 22:16 Last Admin: 11/25/18 21:04 Dose: 0.5 mg Magnesium Hydroxide (Milk Of Magnesia) 30 ml PO HS PRN PRN Reason: Constipation Miscellaneous (Probiotic Screen) 1 ea MC PRN PRN PRN Reason: PROTOCOL Stop: 01/18/19 15:32 Prednisone (Deltasone) 40 mg PO DAILY MUKUND Stop: 01/18/19 08:59 Last Admin: 11/25/18 09:09 Dose: 40 mg Risperidone (Risperdal) 1 mg PO BID MUKUND; Protocol Stop: 01/18/19 08:59 Last Admin: 11/25/18 16:51 Dose: 1 mg Zolpidem Tartrate (Ambien) 5 mg PO HS PRN PRN Reason: Insomnia Stop: 01/17/19 22:16 Last Admin: 11/22/18 23:19 Dose: 5 mg General: Alert, Other (confused, not oriented) HEENT: Atraumatic Neck: Supple Cardiovascular: Regular rate Lungs: Other (Bilateral whezzing) Abdomen: Bowel sounds, Soft Extremities: Other (No edema) Neurological: Other (unestable gait) Skin: Other (warm and dry) Psych/Mental Status: Other (confused, not oriented) Assessment/Plan - Assessment Assessment: She is awake, alert, confused, not oriented, in no acute distress. There is bilateral whezzing. CXR shows no acute illness, labs are wnl. Dx: Psychosis, COPD exacerbation, Schizophrenia. - Plan Plan: patient is follow by Psychiatry, she is on albuterol/ipratropium breathing treatment, Patient was DC to [facility]. Nutritional Asmnt/Malnutr-PDOC - Dietary Evaluation Malnutrition Findings (Please click <Entered> for more info): Nutritional Asmnt/Malnutrition Start: 11/23/18 14: 26 Text: Status: Complete Freq: Protocol: Document 11/23/18 14:26 LCHENG (Rec: 11/23/18 14:40 [email or web address]) Nutritional Asmnt/Malnutrition Patient General Information Nutritional Screening Low Risk Diagnosis psychosis & schizophrenia Pertinent Medical Hx/Surgical Hx COPD, psychosis, schizophrenia Subjective Information pt seen smoking in patio at time of visit. PO intake 100% per EMR. Current Diet Order/ Nutrition Support regular Pertinent Medications reviewed Pertinent Labs 11/19 Cr 0.5 Nutritional Hx/Data Height 1.57 m Height (Calculated Centimeters) 157.5 Current Weight (lbs) 49.442 kg Weight (Calculated Kilograms) 49.4 Weight (Calculated Grams) 03197.6 [place] Body Weight 100 Body Mass Index (BMI) 19.9 Weight Status Approriate GI Symptoms GI Symptoms None Last BM 11/22 Difficult in: None Skin Integrity/Comment: intact Current %PO Good (75-100%) Estimated Nutritional Goals BEE in Kcals: Using Current wt Calories/Kcals/Kg 25-30 Kcals Calculated 2989-3696 Protein: Using Current wt Protein g/k Protein Calculated 50 Fluid: ml 1250-1500ml (1ml/kcal) Nutritional Problem No current Nutrition Prob Problem N/A Malnutrition Alert Is there a minimum of two criteria No selected? Query Text:Check all the applicable criteria. A minimum of two criteria are recommended for diagnosis of either severe or non-severe malnutrition. Malnutrition Related to Morbid Obesity Malnutrition related to morbid obesity No Intervention/Recommendation Comments 1. Continue with cregular diet as ordered. 2. Monitor PO intake, wt, labs and skin integrity 3. F/U as low risk in 7 days Expected Outcomes/Goals Expected Outcomes/Goals 1. PO intake to meet at least 75% of nutritional needs. 2. Wt stability, skin to remain intact, labs to approach WNL.
--- NOTE | 2018-11-26 20:39 | Progress Notes ---
DATE: 11/26/2018 SUBJECTIVE: Staff was spoken to. The patient is interviewed. Mood is noted to be irritable. Affect is constricted. The patient is reported to have been pacing back and forth not able to sit still. Staff are reporting that the patient is getting easily angry and redirected. Coping skills are noted to be very poor. The patient has been on Risperdal 1 mg twice a day and has been able to tolerate the medication. No side effects to the medications are noted. ASSESSMENT: The patient continues to be paranoid. PLAN: To continue the patient's supportive therapy and gradually increase the dose of the Risperdal and follow. JOB# [id number]
[2018-11-27] MEDS: Albuterol/Ipratropium Neb 3 ML AERS HHN SCH ×4 (06:45→19:46)
--- NOTE | 2018-11-27 14:17 | Progress Notes ---
DATE: 11/27/2018 SUBJECTIVE: Staff was spoken to. The patient is interviewed. Mood is noted to be irritable. Affect is constricted. The patient is pacing most of the time on the unit. Insight and judgment at this time are noted to be still impaired. Impulse control seems to be limited. The patient is laughing and giggling. The patient is currently on risperidone 1 mg and does not seem to be enough and hence I have decided to increase the dose on the risperidone to 2 mg twice a day and follow the patient up with supportive therapy at this time. The patient is not ready to be discharge to a lower level of care in view of her acute psychosis. JOB# [id number]
--- NOTE | 2018-11-27 15:37 | General Progress Note ---
Subjective - Review of Systems Service Date: 11/27/18 Subjective: I am fine Objective - Results Result Diagrams: 11/19/18 07:00 11/19/18 07:00 Recent Labs: Laboratory Last Values WBC 9.6 Th/cmm (4.8-10.8) 11/19/18 07:00 RBC 4.46 Mil/cmm (3.80-5.20) 11/19/18 07:00 Hgb 14.1 gm/dL (12-16) 11/19/18 07:00 Hct 43.2 % (41.0-60) 11/19/18 07:00 MCV 96.7 fl (81-100) 11/19/18 07:00 MCH 31.7 pg (27.0-31.0) H 11/19/18 07:00 MCHC Differential 32.8 pg (28.0-36.0) 11/19/18 07:00 RDW 13.5 % (11.5-20.0) 11/19/18 07:00 Plt Count 230 Th/cmm (150-400) 11/19/18 07:00 MPV 8.4 fl 11/19/18 07:00 Neutrophils % 49.7 % (40.0-80.0) 11/19/18 07:00 Lymphocytes % 42.4 % (20.0-50.0) 11/19/18 07:00 Monocytes % 6.5 % (2.0-10.0) 11/19/18 07:00 Eosinophils % 0.7 % (0.0-5.0) 11/19/18 07:00 Basophils % 0.7 % (0.0-2.0) 11/19/18 07:00 Sodium 139 mEq/L (136-145) 11/19/18 07:00 Potassium 3.9 mEq/L (3.5-5.1) 11/19/18 07:00 Chloride 101 mEq/L (98-107) 11/19/18 07:00 Carbon Dioxide 28.3 mEq/L (21.0-31.0) 11/19/18 07:00 Anion Gap 13.6 (7.0-16.0) 11/19/18 07:00 BUN 15 mg/dL (7-25) 11/19/18 07:00 Creatinine 0.5 mg/dL (0.6-1.2) L 11/19/18 07:00 Est GFR ( Amer) > 60.0 ml/min (>90) 11/19/18 07:00 Est GFR (Non-Af Amer) > 60.0 ml/min 11/19/18 07:00 BUN/Creatinine Ratio 30.0 11/19/18 07:00 Glucose 101 mg/dL (70-105) 11/19/18 07:00 Calcium 9.4 mg/dL (8.6-10.3) 11/19/18 07:00 Total Bilirubin 0.3 mg/dL (0.3-1.0) 11/19/18 07:00 AST 36 U/L (13-39) 11/19/18 07:00 ALT 43 U/L (7-52) 11/19/18 07:00 Alkaline Phosphatase 78 U/L (34-104) 11/19/18 07:00 Total Protein 6.5 gm/dL (6.0-8.3) 11/19/18 07:00 Albumin 3.8 gm/dL (3.7-5.3) 11/19/18 07:00 Globulin 2.7 gm/dL 11/19/18 07:00 Albumin/Globulin Ratio 1.4 (1.0-1.8) 11/19/18 07:00 Triglycerides 163 mg/dL (<150) H 11/19/18 07:00 Cholesterol 206 mg/dL (<200) H 11/19/18 07:00 LDL Cholesterol Direct 112 mg/dL (75-193) 11/19/18 07:00 HDL Cholesterol 62 mg/dL (23-92) 11/19/18 07:00 TSH 2.58 uIU/ml (0.34-5.60) 11/19/18 07:00 Urine Source MIDSTREAM 11/18/18 00:00 Urine Color YELLOW 11/18/18 00:00 Urine Clarity CLEAR (CLEAR) 11/18/18 00:00 Urine pH 5.5 (4.6 - 8.0) 11/18/18 00:00 Ur Specific [place] 1.020 (1.005-1.030) 11/18/18 00:00 Urine Protein NEGATIVE mg/dL (NEGATIVE) 11/18/18 00:00 Urine Glucose (UA) NEGATIVE mg/dL (NEGATIVE) 11/18/18 00:00 Urine Ketones NEGATIVE mg/dL (NEGATIVE) 11/18/18 00:00 Urine Blood NEGATIVE (NEGATIVE) 11/18/18 00:00 Urine Nitrate NEGATIVE (NEGATIVE) 11/18/18 00:00 Urine Bilirubin NEGATIVE (NEGATIVE) 11/18/18 00:00 Urine Urobilinogen 0.2 E.U./dL (0.2 - 1.0) 11/18/18 00:00 Ur Leukocyte Esterase NEGATIVE (NEGATIVE) 11/18/18 00:00 - Physical Exam Vitals and I&O: Vital Signs Temp 98.2 F 11/27/18 14:00 Pulse 92 11/27/18 14:22 Resp 20 11/27/18 14:22 BP 106/62 11/27/18 14:00 Pulse Ox 96 11/27/18 14:22 Intake & Output 11/26/18 11/27/18 11/27/18 18:59 06:59 18:59 Intake Total 1320 600 Output Total 300 Balance 1320 300 Intake: Oral 1080 480 Other 240 120 Output: Urine 300 Stool 0 Other: # Voids 4 # Bowel Movements 1 Active Medications: Current Medications Acetaminophen (Tylenol) 650 mg PO Q4HR PRN PRN Reason: Mild Pain / Temp above 100 Stop: 01/17/19 22:16 Last Admin: 11/27/18 09:03 Dose: 650 mg Al Hydrox/Mg Hydrox/Simethicone (Maalox) 30 ml PO Q4HR PRN PRN Reason: GI DISTRESS Stop: 01/17/19 22:16 Albuterol Sulfate (Albuterol 2.5mg/3ml Neb Ud) 2.5 mg HHN Q4H PRN PRN Reason: wheezing Stop: 01/17/19 22:49 Last Admin: 11/19/18 07:07 Dose: 2.5 mg Albuterol/Ipratropium (Duoneb Neb) 3 ml HHN [id number] Stop: 01/18/19 10:59 Last Admin: 11/27/18 14:19 Dose: 3 ml Benztropine Mesylate (Cogentin) 0.5 mg PO BID [facility] Stop: 01/19/19 08:59 Last Admin: 11/27/18 09:03 Dose: 0.5 mg Lorazepam (Ativan) 0.5 mg PO Q4HR PRN; Protocol PRN Reason: Agitation Stop: 12/18/18 22:16 Last Admin: 11/27/18 09:03 Dose: 0.5 mg Magnesium Hydroxide (Milk Of Magnesia) 30 ml PO HS PRN PRN Reason: Constipation Miscellaneous (Probiotic Screen) 1 ea MC PRN PRN PRN Reason: PROTOCOL Stop: 01/18/19 15:32 Prednisone (Deltasone) 40 mg PO DAILY MUKUND Stop: 01/18/19 08:59 Last Admin: 11/27/18 09:03 Dose: 40 mg Risperidone (Risperdal) 2 mg PO BID MUKUND; Protocol Stop: 01/26/19 16:59 Zolpidem Tartrate (Ambien) 5 mg PO HS PRN PRN Reason: Insomnia Stop: 01/17/19 22:16 Last Admin: 11/26/18 20:47 Dose: 5 mg General: Alert, Other (confused, not oriented) HEENT: Atraumatic Neck: Supple Cardiovascular: Regular rate Lungs: Other (Bilateral whezzing) Abdomen: Bowel sounds, Soft Extremities: Other (No edema) Neurological: Other (unestable gait) Skin: Other (warm and dry) Psych/Mental Status: Other (confused, not oriented) Assessment/Plan - Assessment Assessment: She is awake, alert, confused, not oriented, in no acute distress. There is bilateral whezzing. CXR shows no acute illness, labs are wnl. Dx: Psychosis, COPD exacerbation, Schizophrenia. - Plan Plan: patient is follow by Psychiatry, she is on albuterol/ipratropium breathing treatment, Patient was DC to [facility]. Nutritional Asmnt/Malnutr-PDOC - Dietary Evaluation Malnutrition Findings (Please click <Entered> for more info): Nutritional Asmnt/Malnutrition Start: 11/23/18 14: 26 Text: Status: Complete Freq: Protocol: Document 11/23/18 14:26 LCHENG (Rec: 11/23/18 14:40 [email or web address]) Nutritional Asmnt/Malnutrition Patient General Information Nutritional Screening Low Risk Diagnosis psychosis & schizophrenia Pertinent Medical Hx/Surgical Hx COPD, psychosis, schizophrenia Subjective Information pt seen smoking in patio at time of visit. PO intake 100% per EMR. Current Diet Order/ Nutrition Support regular Pertinent Medications reviewed Pertinent Labs 4/19 Cr 0.5 Nutritional Hx/Data Height 1.57 m Height (Calculated Centimeters) 157.5 Current Weight (lbs) 49.442 kg Weight (Calculated Kilograms) 49.4 Weight (Calculated Grams) 20241.6 [place] Body Weight 100 Body Mass Index (BMI) 19.9 Weight Status Approriate GI Symptoms GI Symptoms None Last BM 11/22 Difficult in: None Skin Integrity/Comment: intact Current %PO Good (75-100%) Estimated Nutritional Goals BEE in Kcals: Using Current wt Calories/Kcals/Kg 25-30 Kcals Calculated 6734-8359 Protein: Using Current wt Protein g/k Protein Calculated 50 Fluid: ml 1250-1500ml (1ml/kcal) Nutritional Problem No current Nutrition Prob Problem N/A Malnutrition Alert Is there a minimum of two criteria No selected? Query Text:Check all the applicable criteria. A minimum of two criteria are recommended for diagnosis of either severe or non-severe malnutrition. Malnutrition Related to Morbid Obesity Malnutrition related to morbid obesity No Intervention/Recommendation Comments 1. Continue with cregular diet as ordered. 2. Monitor PO intake, wt, labs and skin integrity 3. F/U as low risk in 7 days Expected Outcomes/Goals Expected Outcomes/Goals 1. PO intake to meet at least 75% of nutritional needs. 2. Wt stability, skin to remain intact, labs to approach WNL.
--- NOTE | 2018-11-27 19:34 | Progress Notes ---
DATE: 11/26/2018 PSYCHOLOGY PROGRESS NOTE SUBJECTIVE: The patient is seen and is interviewed. Case is discussed with staff. The patient presents as withdrawn and less verbal this visit. The patient seems to be irritated. The staff reports the patient has had episodes of getting easily angered with poor redirection. The patient is rambling with loose associations in response to the clinical questions with this web content writer. OBJECTIVE: Mood is irritable. Affect is constricted. Thought process includes paranoid ideation. The patient denied auditory and visual hallucinations. The patient's behavior has been generally redirectable with intermittent yelling episodes. ASSESSMENT AND PLAN: We provided reality orientation, differentiation and integration. We provided remotivation for the patient to stay compliant with her care and treatment. The patient is taking her p.o. medications. We provided coping strategies for chronic severe mental illness and for phase of life issues. The patient is requesting to speak with the window caser and/or social media coordinator regarding placement. They have been informed. We will continue the present treatment and followup in 2 days. JOB# [id number] GLENYS
[2018-11-28] MEDS: Albuterol/Ipratropium Neb 3 ML AERS HHN SCH ×4 (06:26→19:48)
--- NOTE | 2018-11-28 12:36 | General Progress Note ---
Subjective - Review of Systems Service Date: 11/28/18 Subjective: I am fine Objective - Results Result Diagrams: 11/19/18 07:00 11/19/18 07:00 Recent Labs: Laboratory Last Values WBC 9.6 Th/cmm (4.8-10.8) 11/19/18 07:00 RBC 4.46 Mil/cmm (3.80-5.20) 11/19/18 07:00 Hgb 14.1 gm/dL (12-16) 11/19/18 07:00 Hct 43.2 % (41.0-60) 11/19/18 07:00 MCV 96.7 fl (81-100) 11/19/18 07:00 MCH 31.7 pg (27.0-31.0) H 11/19/18 07:00 MCHC Differential 32.8 pg (28.0-36.0) 11/19/18 07:00 RDW 13.5 % (11.5-20.0) 11/19/18 07:00 Plt Count 230 Th/cmm (150-400) 11/19/18 07:00 MPV 8.4 fl 11/19/18 07:00 Neutrophils % 49.7 % (40.0-80.0) 11/19/18 07:00 Lymphocytes % 42.4 % (20.0-50.0) 11/19/18 07:00 Monocytes % 6.5 % (2.0-10.0) 11/19/18 07:00 Eosinophils % 0.7 % (0.0-5.0) 11/19/18 07:00 Basophils % 0.7 % (0.0-2.0) 11/19/18 07:00 Sodium 139 mEq/L (136-145) 11/19/18 07:00 Potassium 3.9 mEq/L (3.5-5.1) 11/19/18 07:00 Chloride 101 mEq/L (98-107) 11/19/18 07:00 Carbon Dioxide 28.3 mEq/L (21.0-31.0) 11/19/18 07:00 Anion Gap 13.6 (7.0-16.0) 11/19/18 07:00 BUN 15 mg/dL (7-25) 11/19/18 07:00 Creatinine 0.5 mg/dL (0.6-1.2) L 11/19/18 07:00 Est GFR ( Amer) > 60.0 ml/min (>90) 11/19/18 07:00 Est GFR (Non-Af Amer) > 60.0 ml/min 11/19/18 07:00 BUN/Creatinine Ratio 30.0 11/19/18 07:00 Glucose 101 mg/dL (70-105) 11/19/18 07:00 Calcium 9.4 mg/dL (8.6-10.3) 11/19/18 07:00 Total Bilirubin 0.3 mg/dL (0.3-1.0) 11/19/18 07:00 AST 36 U/L (13-39) 11/19/18 07:00 ALT 43 U/L (7-52) 11/19/18 07:00 Alkaline Phosphatase 78 U/L (34-104) 11/19/18 07:00 Total Protein 6.5 gm/dL (6.0-8.3) 11/19/18 07:00 Albumin 3.8 gm/dL (3.7-5.3) 11/19/18 07:00 Globulin 2.7 gm/dL 11/19/18 07:00 Albumin/Globulin Ratio 1.4 (1.0-1.8) 11/19/18 07:00 Triglycerides 163 mg/dL (<150) H 11/19/18 07:00 Cholesterol 206 mg/dL (<200) H 11/19/18 07:00 LDL Cholesterol Direct 112 mg/dL (75-193) 11/19/18 07:00 HDL Cholesterol 62 mg/dL (23-92) 11/19/18 07:00 TSH 2.58 uIU/ml (0.34-5.60) 11/19/18 07:00 Urine Source MIDSTREAM 11/18/18 00:00 Urine Color YELLOW 11/18/18 00:00 Urine Clarity CLEAR (CLEAR) 11/18/18 00:00 Urine pH 5.5 (4.6 - 8.0) 11/18/18 00:00 Ur Specific [place] 1.020 (1.005-1.030) 11/18/18 00:00 Urine Protein NEGATIVE mg/dL (NEGATIVE) 11/18/18 00:00 Urine Glucose (UA) NEGATIVE mg/dL (NEGATIVE) 11/18/18 00:00 Urine Ketones NEGATIVE mg/dL (NEGATIVE) 11/18/18 00:00 Urine Blood NEGATIVE (NEGATIVE) 11/18/18 00:00 Urine Nitrate NEGATIVE (NEGATIVE) 11/18/18 00:00 Urine Bilirubin NEGATIVE (NEGATIVE) 11/18/18 00:00 Urine Urobilinogen 0.2 E.U./dL (0.2 - 1.0) 11/18/18 00:00 Ur Leukocyte Esterase NEGATIVE (NEGATIVE) 11/18/18 00:00 - Physical Exam Vitals and I&O: Vital Signs Temp 98.2 F 11/28/18 06:05 Pulse 75 11/28/18 10:30 Resp 20 11/28/18 10:30 BP 106/63 11/28/18 06:05 Pulse Ox 96 11/28/18 10:30 Intake & Output 11/27/18 11/28/18 11/28/18 18:59 06:59 18:59 Intake Total 1300 120 Balance 1300 120 Intake: Oral 1300 120 Other: # Voids 2 2 # Bowel Movements 0 0 Active Medications: Current Medications Acetaminophen (Tylenol) 650 mg PO Q4HR PRN PRN Reason: Mild Pain / Temp above 100 Stop: 01/17/19 22:16 Last Admin: 11/28/18 03:43 Dose: 650 mg Al Hydrox/Mg Hydrox/Simethicone (Maalox) 30 ml PO Q4HR PRN PRN Reason: GI DISTRESS Stop: 01/17/19 22:16 Albuterol Sulfate (Albuterol 2.5mg/3ml Neb Ud) 2.5 mg HHN Q4H PRN PRN Reason: wheezing Stop: 01/17/19 22:49 Last Admin: 11/19/18 07:07 Dose: 2.5 mg Albuterol/Ipratropium (Duoneb Neb) 3 ml HHN [id number] [facility] Stop: 01/18/19 10:59 Last Admin: 11/28/18 10:28 Dose: 3 ml Benztropine Mesylate (Cogentin) 0.5 mg PO BID MUKUND Stop: 01/19/19 08:59 Last Admin: 11/28/18 08:58 Dose: 0.5 mg Lorazepam (Ativan) 0.5 mg PO Q4HR PRN; Protocol PRN Reason: Agitation Stop: 12/18/18 22:16 Last Admin: 11/28/18 08:58 Dose: 0.5 mg Magnesium Hydroxide (Milk Of Magnesia) 30 ml PO HS PRN PRN Reason: Constipation Miscellaneous (Probiotic Screen) 1 ea MC PRN PRN PRN Reason: PROTOCOL Stop: 01/18/19 15:32 Prednisone (Deltasone) 40 mg PO DAILY MUKUND Stop: 01/18/19 08:59 Last Admin: 11/28/18 08:58 Dose: 40 mg Risperidone (Risperdal) 2 mg PO BID MUKUND; Protocol Stop: 01/26/19 16:59 Last Admin: 11/28/18 08:58 Dose: 2 mg Zolpidem Tartrate (Ambien) 5 mg PO HS PRN PRN Reason: Insomnia Stop: 01/17/19 22:16 Last Admin: 11/27/18 21:00 Dose: 5 mg General: Alert, Other (confused, not oriented) HEENT: Atraumatic Neck: Supple Cardiovascular: Regular rate Lungs: Other (Bilateral whezzing) Abdomen: Bowel sounds, Soft Extremities: Other (No edema) Neurological: Other (unestable gait) Skin: Other (warm and dry) Psych/Mental Status: Other (confused, not oriented) Assessment/Plan - Assessment Assessment: She is awake, alert, confused, not oriented, in no acute distress. Dx: Psychosis , COPD exacerbation, Schizophrenia. - Plan Plan: patient is follow by Psychiatry, she is on albuterol/ipratropium breathing treatment, Nutritional Asmnt/Malnutr-PDOC - Dietary Evaluation Malnutrition Findings (Please click <Entered> for more info): Nutritional Asmnt/Malnutrition Start: 11/23/18 14: 26 Text: Status: Complete Freq: Protocol: Document 11/23/18 14:26 LCHENG (Rec: 11/23/18 14:40 [email or web address] [email or web address]) Nutritional Asmnt/Malnutrition Patient General Information Nutritional Screening Low Risk Diagnosis psychosis & schizophrenia Pertinent Medical Hx/Surgical Hx COPD, psychosis, schizophrenia Subjective Information pt seen smoking in patio at time of visit. PO intake 100% per EMR. Current Diet Order/ Nutrition Support regular Pertinent Medications reviewed Pertinent Labs 11/19 Cr 0.5 Nutritional Hx/Data Height 1.57 m Height (Calculated Centimeters) 157.5 Current Weight (lbs) 49.442 kg Weight (Calculated Kilograms) 49.4 Weight (Calculated Grams) 83500.6 [place] Body Weight 100 Body Mass Index (BMI) 19.9 Weight Status Approriate GI Symptoms GI Symptoms None Last BM 11/22 Difficult in: None Skin Integrity/Comment: intact Current %PO Good (75-100%) Estimated Nutritional Goals BEE in Kcals: Using Current wt Calories/Kcals/Kg 25-30 Kcals Calculated 1117-3762 Protein: Using Current wt Protein g/k Protein Calculated 50 Fluid: ml 1250-1500ml (1ml/kcal) Nutritional Problem No current Nutrition Prob Problem N/A Malnutrition Alert Is there a minimum of two criteria No selected? Query Text:Check all the applicable criteria. A minimum of two criteria are recommended for diagnosis of either severe or non-severe malnutrition. Malnutrition Related to Morbid Obesity Malnutrition related to morbid obesity No Intervention/Recommendation Comments 1. Continue with cregular diet as ordered. 2. Monitor PO intake, wt, labs and skin integrity 3. F/U as low risk in 7 days Expected Outcomes/Goals Expected Outcomes/Goals 1. PO intake to meet at least 75% of nutritional needs. 2. Wt stability, skin to remain intact, labs to approach WNL.
--- NOTE | 2018-11-28 13:37 | Progress Notes ---
DATE: 11/28/2018 PSYCHIATRIC PROGRESS NOTE SUBJECTIVE: Staff was spoken to. The patient is interviewed. Mood is noted to be anxious. The patient is pacing most of the time on the unit. Coping skills are noted to still poor. The patient continues to be paranoid. The patient's Risperdal dose has been increased yesterday. The patient is able to tolerate the medications. No major behavioral problems are noted today. ASSESSMENT: The patient's psychosis is resolving. PLAN: To continue the patient with the supportive therapy and followup. [facility]# [id number]
[2018-11-29] MEDS: Albuterol/Ipratropium Neb 3 ML AERS HHN SCH ×3 (06:58→15:15)
--- NOTE | 2018-11-29 08:51 | General Progress Note ---
Subjective - Review of Systems Service Date: 11/29/18 Subjective: I am fine Objective - Results Result Diagrams: 11/19/18 07:00 11/19/18 07:00 Recent Labs: Laboratory Last Values WBC 9.6 Th/cmm (4.8-10.8) 11/19/18 07:00 RBC 4.46 Mil/cmm (3.80-5.20) 11/19/18 07:00 Hgb 14.1 gm/dL (12-16) 11/19/18 07:00 Hct 43.2 % (41.0-60) 11/19/18 07:00 MCV 96.7 fl (81-100) 11/19/18 07:00 MCH 31.7 pg (27.0-31.0) H 11/19/18 07:00 MCHC Differential 32.8 pg (28.0-36.0) 11/19/18 07:00 RDW 13.5 % (11.5-20.0) 11/19/18 07:00 Plt Count 230 Th/cmm (150-400) 11/19/18 07:00 MPV 8.4 fl 11/19/18 07:00 Neutrophils % 49.7 % (40.0-80.0) 11/19/18 07:00 Lymphocytes % 42.4 % (20.0-50.0) 11/19/18 07:00 Monocytes % 6.5 % (2.0-10.0) 11/19/18 07:00 Eosinophils % 0.7 % (0.0-5.0) 11/19/18 07:00 Basophils % 0.7 % (0.0-2.0) 11/19/18 07:00 Sodium 139 mEq/L (136-145) 11/19/18 07:00 Potassium 3.9 mEq/L (3.5-5.1) 11/19/18 07:00 Chloride 101 mEq/L (98-107) 11/19/18 07:00 Carbon Dioxide 28.3 mEq/L (21.0-31.0) 11/19/18 07:00 Anion Gap 13.6 (7.0-16.0) 11/19/18 07:00 BUN 15 mg/dL (7-25) 11/19/18 07:00 Creatinine 0.5 mg/dL (0.6-1.2) L 11/19/18 07:00 Est GFR ( Amer) > 60.0 ml/min (>90) 11/19/18 07:00 Est GFR (Non-Af Amer) > 60.0 ml/min 11/19/18 07:00 BUN/Creatinine Ratio 30.0 11/19/18 07:00 Glucose 101 mg/dL (70-105) 11/19/18 07:00 Calcium 9.4 mg/dL (8.6-10.3) 11/19/18 07:00 Total Bilirubin 0.3 mg/dL (0.3-1.0) 11/19/18 07:00 AST 36 U/L (13-39) 11/19/18 07:00 ALT 43 U/L (7-52) 11/19/18 07:00 Alkaline Phosphatase 78 U/L (34-104) 11/19/18 07:00 Total Protein 6.5 gm/dL (6.0-8.3) 11/19/18 07:00 Albumin 3.8 gm/dL (3.7-5.3) 11/19/18 07:00 Globulin 2.7 gm/dL 11/19/18 07:00 Albumin/Globulin Ratio 1.4 (1.0-1.8) 11/19/18 07:00 Triglycerides 163 mg/dL (<150) H 11/19/18 07:00 Cholesterol 206 mg/dL (<200) H 11/19/18 07:00 LDL Cholesterol Direct 112 mg/dL (75-193) 11/19/18 07:00 HDL Cholesterol 62 mg/dL (23-92) 11/19/18 07:00 TSH 2.58 uIU/ml (0.34-5.60) 11/19/18 07:00 Urine Source MIDSTREAM 11/18/18 00:00 Urine Color YELLOW 11/18/18 00:00 Urine Clarity CLEAR (CLEAR) 11/18/18 00:00 Urine pH 5.5 (4.6 - 8.0) 11/18/18 00:00 Ur Specific [place] 1.020 (1.005-1.030) 11/18/18 00:00 Urine Protein NEGATIVE mg/dL (NEGATIVE) 11/18/18 00:00 Urine Glucose (UA) NEGATIVE mg/dL (NEGATIVE) 11/18/18 00:00 Urine Ketones NEGATIVE mg/dL (NEGATIVE) 11/18/18 00:00 Urine Blood NEGATIVE (NEGATIVE) 11/18/18 00:00 Urine Nitrate NEGATIVE (NEGATIVE) 11/18/18 00:00 Urine Bilirubin NEGATIVE (NEGATIVE) 11/18/18 00:00 Urine Urobilinogen 0.2 E.U./dL (0.2 - 1.0) 11/18/18 00:00 Ur Leukocyte Esterase NEGATIVE (NEGATIVE) 11/18/18 00:00 - Physical Exam Vitals and I&O: Vital Signs Temp 98.5 F 11/29/18 05:19 Pulse 75 11/29/18 07:00 Resp 18 11/29/18 07:00 BP 112/65 11/29/18 05:19 Pulse Ox 94 11/29/18 07:00 Intake & Output 11/28/18 11/29/18 11/29/18 18:59 06:59 18:59 Intake Total 240 Balance 240 Intake: Oral 240 Other: # Voids 1 Active Medications: Current Medications Acetaminophen (Tylenol) 650 mg PO Q4HR PRN PRN Reason: Mild Pain / Temp above 100 Stop: 01/17/19 22:16 Last Admin: 11/28/18 14:38 Dose: 650 mg Al Hydrox/Mg Hydrox/Simethicone (Maalox) 30 ml PO Q4HR PRN PRN Reason: GI DISTRESS Stop: 01/17/19 22:16 Albuterol Sulfate (Albuterol 2.5mg/3ml Neb Ud) 2.5 mg HHN Q4H PRN PRN Reason: wheezing Stop: 01/17/19 22:49 Last Admin: 11/19/18 07:07 Dose: 2.5 mg Albuterol/Ipratropium (Duoneb Neb) 3 ml HHN [id number] MUKUND Stop: 01/18/19 10:59 Last Admin: 11/29/18 06:58 Dose: 3 ml Benztropine Mesylate (Cogentin) 0.5 mg PO BID MUKUND Stop: 01/19/19 08:59 Last Admin: 11/29/18 08:43 Dose: 0.5 mg Lorazepam (Ativan) 0.5 mg PO Q4HR PRN; Protocol PRN Reason: Agitation Stop: 12/18/18 22:16 Last Admin: 11/28/18 14:38 Dose: 0.5 mg Magnesium Hydroxide (Milk Of Magnesia) 30 ml PO HS PRN PRN Reason: Constipation Miscellaneous (Probiotic Screen) 1 ea MC PRN PRN PRN Reason: PROTOCOL Stop: 01/18/19 15:32 Prednisone (Deltasone) 40 mg PO DAILY MUKUND Stop: 01/18/19 08:59 Last Admin: 11/29/18 08:42 Dose: 40 mg Risperidone (Risperdal) 2 mg PO BID MUKUND; Protocol Stop: 01/26/19 16:59 Last Admin: 11/29/18 08:42 Dose: 2 mg Zolpidem Tartrate (Ambien) 5 mg PO HS PRN PRN Reason: Insomnia Stop: 01/17/19 22:16 Last Admin: 11/27/18 21:00 Dose: 5 mg General: Alert, Other (confused, not oriented) HEENT: Atraumatic Neck: Supple Cardiovascular: Regular rate Lungs: Other (Bilateral whezzing) Abdomen: Bowel sounds, Soft Extremities: Other (No edema) Neurological: Other (unestable gait) Skin: Other (warm and dry) Psych/Mental Status: Other (confused, not oriented) Assessment/Plan - Assessment Assessment: She is awake, alert, confused, not oriented, in no acute distress. Dx: Psychosis , COPD exacerbation, Schizophrenia. - Plan Plan: patient is follow by Psychiatry, she is on albuterol/ipratropium breathing treatment, Nutritional Asmnt/Malnutr-PDOC - Dietary Evaluation Malnutrition Findings (Please click <Entered> for more info): Nutritional Asmnt/Malnutrition Start: 11/23/18 14: 26 Text: Status: Complete Freq: Protocol: Document 11/23/18 14:26 LCHENG (Rec: 11/23/18 14:40 LCHENG [email or web address]) Nutritional Asmnt/Malnutrition Patient General Information Nutritional Screening Low Risk Diagnosis psychosis & schizophrenia Pertinent Medical Hx/Surgical Hx COPD, psychosis, schizophrenia Subjective Information pt seen smoking in patio at time of visit. PO intake 100% per EMR. Current Diet Order/ Nutrition Support regular Pertinent Medications reviewed Pertinent Labs 11/19 Cr 0.5 Nutritional Hx/Data Height 1.57 m Height (Calculated Centimeters) 157.5 Current Weight (lbs) 49.442 kg Weight (Calculated Kilograms) 49.4 Weight (Calculated Grams) 63598.6 [place] Body Weight 100 Body Mass Index (BMI) 19.9 Weight Status Approriate GI Symptoms GI Symptoms None Last BM 11/22 Difficult in: None Skin Integrity/Comment: intact Current %PO Good (75-100%) Estimated Nutritional Goals BEE in Kcals: Using Current wt Calories/Kcals/Kg 25-30 Kcals Calculated 3680-2581 Protein: Using Current wt Protein g/k Protein Calculated 50 Fluid: ml 1250-1500ml (1ml/kcal) Nutritional Problem No current Nutrition Prob Problem N/A Malnutrition Alert Is there a minimum of two criteria No selected? Query Text:Check all the applicable criteria. A minimum of two criteria are recommended for diagnosis of either severe or non-severe malnutrition. Malnutrition Related to Morbid Obesity Malnutrition related to morbid obesity No Intervention/Recommendation Comments 1. Continue with cregular diet as ordered. 2. Monitor PO intake, wt, labs and skin integrity 3. F/U as low risk in 7 days Expected Outcomes/Goals Expected Outcomes/Goals 1. PO intake to meet at least 75% of nutritional needs. 2. Wt stability, skin to remain intact, labs to approach WNL.
--- NOTE | 2018-11-30 01:26 | Progress Notes ---
DATE: 11/29/2018 PSYCHIATRIC PROGRESS NOTE SUBJECTIVE: Staff was spoken to. The patient is interviewed. Mood is noted to be anxious. Affect is appropriate. Not suicidal or homicidal. Insight and judgment are noted to be improving. Impulse control is noted to be fair. Coping skills are also noted to be fair. No side effects to the medications are noted. The patient has been pacing on the unit, but no major behavioral problems are reported today. ASSESSMENT: The patient is stabilizing. PLAN: To discharge the patient today for followup on outpatient basis. JOB# [id number]
--- NOTE | 2018-11-30 14:49 | Progress Notes ---
DATE: 11/29/2018 SUBJECTIVE: The patient is seen and is interviewed. Case is discussed with staff. The patient presents as cooperative. The patient is still somewhat suspicious. The staff reports the patient's pacing has been coming under control. OBJECTIVE: Mood is anxious. Affect is constricted. Thought process includes tangentiality. The patient denied any auditory or visual hallucinations. No behavioral problems are noted by staff. ASSESSMENT AND PLAN: The patient's psychosis seems to be resolving. We provided reality integration. We provided positive reinforcement for the patient to stay compliant with her care and treatment. We provided coping strategies for chronic severe mental illness as well as for phase of life issues. The patient was able to respond to suggestions regarding adjustment to her placement. No followup is indicated as the patient is scheduled to be discharged today. Prognosis is fair. JOB# [id number] GLENYS
== END 2018-11-29 16:15 | DRG 885 ==
LOC: GERO 19:30
PROVIDERS: ADMIT Psychiatry & Neurology Psychiatry; ATTEND Psychiatry & Neurology Psychiatry
DX: F20.0 Paranoid schizophrenia (principal); J44.1 Chronic obstructive pulmonary disease with (acute) exacerbation; Z59.0 Homelessness; Z90.49 Acquired absence of other specified parts of digestive tract; Z98.51 Tubal ligation status; F17.210 Nicotine dependence, cigarettes, uncomplicated
CPT/HCPCS: 36415-UA; 71045-TC; 80053-TC; 80061-TC; 81003-TC; 83036-90; 84443-TC; 85025-TC; 94640; 94760; G0410; J7613; Z7610